=== PATIENT | female | born 1955 | race Caucasian/White ===

== ENCOUNTER 2023-11-17 16:03 | Emergency (ER) | payer MEDICAID, SELFPAY ==
[2023-11-17 16:04] VITALS: BP 150/85; PULSE 73; RESP 18; TEMP 36.6; O2SAT 94; BMI 36.5
--- NOTE | 2023-11-17 17:17 | EDS_ITS ---
HPI History of Present Illness Chief Complaint: Ear Problem Narrative Narrative: 68-year-old female past medical history of psoriasis, hard of hearing, presents with pain and swelling of her right ear that she has had since yesterday. She states the day before everything was fine. She denies any fevers or chills but states that she has pain and swelling of her right ear that she noticed yesterday. Although she wears hearing aids usually, she has not used it for quite some time because she lost it. She does have psoriasis, and has patches behind both her ears but it is her right ear that is painful and swollen. She states she cannot hear out of that ear very well at baseline. She recently moved to the area so does not have a primary care provider. PFSH [facility] Home Medications ?Medication ?Instructions ?Recorded ?Last Taken ?Type amoxicillin 875 mg-potassium 1 tab PO BID #20 tabs 11/17/23 Unknown Rx clavulanate 125 mg tablet Allergy/AdvReac Type Severity Reaction Status Date / Time No Known Allergies Allergy Verified 11/17/23 16:04 ROS ROS ED ROS Narrative Constitutional: No fever, no chills. HEENT: No sore throat. No neck pain. No loss of vision. No rhinorrhea. Positive right ear pain and swelling. Positive redness. Feels warm to touch. Cardiovascular: No chest pain. No palpitations. No pedal edema. Respiratory: No cough, no shortness of breath. Abdominal: No abdominal pain. No nausea. No vomiting. Genitourinary: No dysuria. No hematuria. Musculoskeletal: No myalgias. No arthralgias. Neurologic: Occasional headaches. No dizziness. No lightheadedness. Skin: No rash. No change in color. Psychiatric: No depression. No anxiety. EXAM Physical Exam Narrative Exam Narrative: Afebrile. Vital signs noted. Nontoxic-appearing. Cardiovascular examination feels a regular rate and rhythm. Lungs are clear to auscultation bilaterally. Abdomen is soft nontender with normal active bowel sounds. Inspection of her right ear and auricle does reveal psoriatic patch and dry skin near the top of the auricle and behind her ear. There is no mastoid tenderness to percussion but there is a psoriatic patch. Inspection of the TM shows dullness with fluid but no erythema, no swelling of the canal. There is pain with movement of the auricle and noted swelling consistent with cellulitis. Const Vital Signs: 11/17/23 16:04 Temperature 98 F Temperature Source Temporal Pulse Rate 73 Respiratory Rate 18 Blood Pressure 150/85 H Blood Pressure Mean 106 Pulse Ox 94 Oxygen Delivery Method Room Air MDM MDM MDM Narrative Medical decision making narrative: Differential diagnosis includes but not limited to cellulitis of the right auricle versus mastoiditis versus otitis media versus otitis externa. I do feel that her psoriasis is causing her cellulitis of the auricle. I do not feel that she requires any laboratory work or CT imaging currently. She was referred to a primary care provider and ENT and started on Augmentin here for the next 10 days. She will take [id number] analgesics. I feel she can be discharged to follow-up. I do not feel steroids are indicated for her psoriasis as I feel it may make her infection worse. Return instructions to the emergency department were reviewed. Disposition is discharged home in stable condition. History & Record Review Discussion w/independent historian: Patient Discharge Plan Triage Chief Complaint: Ear Problem ED Provider: Mike Garcia Dx/Rx/DC Orders Clinical Impression: Cellulitis of auricle of right ear, Psoriasis Prescriptions: New amoxicillin-pot clavulanate 875-125 mg tablet 1 tab PO BID Qty: 20 0RF Referrals: Adrien Robles MD [Med Staff - Active Staff] - As soon as possible Raul Macdonald MD [Med Staff - Active Staff] - 1 Week if not improving Activity Restrictions/Additional Instructions: Return with fever, increased pain, increased swelling and redness of right ear, new or worsening symptoms. Print Language: [place] Leonean Disposition Disposition: Home, Self Care
[2023-11-17] MEDS: Amox/Clavulanate 875 MG Tablet PO (17:34)
[2023-11-17 17:36] VITALS: BP 142/70; PULSE 70; RESP 16; TEMP 36.2; O2SAT 96
== END 2023-11-17 17:39 | disposition home or self-care (01) ==
LOC: ED 17:22
PROVIDERS: Emergency Provider Emergency Medicine; Visit Provider Emergency Medicine
DX: L40.9 Psoriasis, unspecified (principal); H60.11 Cellulitis of right external ear
CPT/HCPCS: 99282

== ENCOUNTER 2024-02-01 01:45 | Emergency (ER) | payer MEDICAID, SELFPAY ==
[2024-02-01 01:48] VITALS: BP 148/68; PULSE 65; RESP 15; TEMP 36.9; O2SAT 94; BMI 35.2
--- NOTE | 2024-02-01 02:09 | CT_ITS ---
INDICATION: head injury EXAMINATION: CT BRAIN - CT Head or Brain W/O Contrast Injection TECHNIQUE: Serial CT axial images were obtained of the head without intravenous contrast. A radiation dose optimization technique was used for this scan. COMPARISON: None. Findings: Serial CT axial images of the head without contrast. BRAIN PARENCHYMA: Diffuse periventricular hypoattenuation likely chronic white matter ischemic changes. No significant volume loss. No evidence of intraparenchymal hemorrhage or hyperattenuating extra-axial fluid collection. VASCULAR STRUCTURES: Atherosclerotic vascular calcifications. OSSEOUS STRUCTURES: There is subtle displaced left orbital floor fracture, extending only approximately 2 mm into the left maxillary sinus. Associated left maxillary sinus air-fluid level. ORBITS: There is asymmetric posterior hyperattenuating thickening of the left globe. REMAINING SOFT TISSUES: Left periorbital hematoma. ASPECTS Score for Acute Strokes, if applicable: 10 CT/Brain/Head without Contrast IMPRESSION: No acute intracranial hemorrhage in this noncontrast head CT. Left proptosis. Left orbital floor fracture. Asymmetric hyperattenuating thickening of the posterior left globe, without comparison although suspicious for possible retinal detachment/hemorrhage. Electronically Signed: Kyle Whaley MD at 4:21 EST ,
--- NOTE | 2024-02-01 02:09 | RAD_ITS ---
INDICATION: pain EXAMINATION/TECHNIQUE: X-RAY - RIGHT XR Tibia/Fibula 2 Views COMPARISON: None. FINDINGS: 2 views of the right tib-fib. BONES: Normal anatomic alignment without evidence of fracture or subluxation. No concerning bony lesion or abnormal sclerosis to suggest lesion. JOINTS: No significant degenerative change. SOFT TISSUES: Unremarkable. RAD/Tibia & Fibula 2 Views IMPRESSION: No acute osseous abnormality of the right tib-fib Electronically Signed: Kyle Whaley MD at 4:28 EST ,
--- NOTE | 2024-02-01 02:09 | RAD_ITS ---
INDICATION: pain EXAMINATION/TECHNIQUE: X-RAY - RIGHT XR Ankle Min 3 Views COMPARISON: None. FINDINGS: 3 views of the right ankle. BONES: Small chronic appearing triangular ossicle off the medial malleolus. Normal anatomic alignment without acute fracture or subluxation. No concerning bony lesion or abnormal sclerosis to suggest lesion. JOINTS: No significant degenerative change. SOFT TISSUES: Unremarkable. RAD/Ankle min 3 Views IMPRESSION: No acute osseous abnormality of the right ankle. Electronically Signed: Kyle Whaley MD at 4:33 EST ,
--- NOTE | 2024-02-01 02:09 | CT_ITS ---
INDICATION: head injury EXAMINATION: CT SPINE - CT Spine Cervical W/O Contrast Injection COMPARISON: None. A radiation dose optimization technique was used for this scan. RADIATION DOSAGE (If Supplied By Facility): CTDIvol/DLP = ( 26.32 ) / ( 537.37 ) mGy/mGycm Findings: Serial CT axial images through the cervical spine, with coronal and sagittal reformatted series. BONES: No evidence of cervical spine fracture or subluxation. No concerning bony lesion or abnormal sclerosis to suggest lesion. DISCS/JOINTS: Moderate to severe multilevel bilateral mid cervical neuroforaminal narrowing. Severe and moderate central bony spinal canal stenosis at these levels as well. SOFT TISSUES: Soft tissue structures are unremarkable. CT/Spine Cervical without Contras IMPRESSION: Cervical spine without evidence of acute fracture. Severe central bony spinal canal stenosis and neuroforaminal narrowing as above. Electronically Signed: Kyle Whaley MD at 4:26 EST ,
--- NOTE | 2024-02-01 02:09 | CT_ITS ---
INDICATION: head injury EXAMINATION/TECHNIQUE: X-RAY - CT Maxillofacial W/O Contrast Injection A radiation dose optimization technique was used for this scan. COMPARISON: Head CT same day. Findings: Noncontrast serial CT axial images of the facial bones with coronal and sagittal reformatted series. OSSEOUS STRUCTURES: There is subtle displaced left orbital floor fracture, extending only approximately 2 mm into the left maxillary sinus. Associated left maxillary sinus air-fluid level. No TMJ subluxation. Partially imaged moderate to severe bilateral upper mid cervical neuroforaminal narrowing, better described on cervical spine CT same day. ORBITS: There is asymmetric posterior hyperattenuating thickening of the left globe. REMAINING SOFT TISSUES: Left periorbital hematoma. CT/Sinus/Facial Bone IMPRESSION: Left proptosis. Left orbital floor fracture. Asymmetric hyperattenuating thickening of the posterior left globe, without comparison although suspicious for possible retinal detachment/hemorrhage. Electronically Signed: Kyle Whaley MD at 4:16 EST ,
[2024-02-01] MEDS: Ondansetron 4 MG/2 ML Vial IV (02:17)
[2024-02-01] MEDS: Morphine 4 MG/ML Syringe IV (02:17)
[2024-02-01 02:27] LABS: Absolute Lymphocyte Count 3.43 X10^3/uL (0.83-4.51); Absolute Neutrophil Count 5.3 X10^3/uL (2.0-7.7); Basophil# 0.07 X10^3/uL; Basophil% 0.7 % (0-1); Eosinophil# 0.36 X10^3/uL; Eosinophils% 3.5 % (0-5); Hemoglobin 15.1 g/dL (12.0-15.0); Lymphocyte # 3.43 X10^3/ul (0.83-4.51); Lymphocyte % 33.6 % (19-41); Mean Corp Hgb Conc 34.3 g/dL (32-36); Mean Corpuscular Volume 99.1 fL (81-99); Mean Platelet Vol. 9.9 fl (6.2-12.0); Monocyte# 1.06 X10^3/uL; Monocyte% 10.4 % (0-10); NRBC Flagged by Analyzer 0 % (0-5); Neutrophil # 5.25 X10^3/uL (2.7-7.7); Neutrophil % 51.5 % (47-70); Platelet Count 185 K/mm3 (150-450); RBC Distribution Width CV 12.8 % (11.6-14.6); RBC Distribution Width SD 47.2 fl (35.1-43.9); Red Blood Count 4.44 M/mm3 (4.2-5.4); White Blood Count 10.2 K/mm3 (4.4-11.0)
--- NOTE | 2024-02-01 02:41 | RAD_ITS ---
STUDY: X-RAY - PELVIS REASON FOR EXAM: Female, 68 years old. Fall TECHNIQUE: One view of the pelvis was obtained. COMPARISON: None. FINDINGS: There is a non-specific bowel gas pattern. There are multiple calcified phleboliths. 2 metallic clips are seen overlying the right sacroiliac joint. Findings suggestive of degenerative change of the right sacroiliac joint. Normal visualized bilateral superior and inferior pubic rami. There is narrowing with sclerosis of the pubic symphysis. Normal ischial tuberosities. Normal visualized right femoral head. There is osteoarthritic spur formation of the right acetabular rim. Normal right hip joint. Normal visualized left femoral head. There is osteoarthritic spur formation of the left acetabular rim. Normal left hip joint. RAD/Pelvis 1 or 2 Views IMPRESSION: No acute fracture is seen. Electronically Signed: Pavan Gann MD at 14:54 EST ,
[2024-02-01 02:42] LABS: Anion Gap 4 (5-15); BUN 12 mg/dL (7-18); BUN/Creat Ratio 14.6 RATIO (10-20); Calcium,Total 9.1 mg/dL (8.5-10.1); Chloride 109 mmol/L (98-107); Creatinine, Serum 0.82 mg/dL (0.55-1.02); EST Glomerular Filtration Rate 74 mL/min (>60); Est Glom Filt Rate - Afr Amer 89 mL/min (>60); Estimated Creatinine Clearance 75.26 ml/min; Glucose 136 mg/dL (74-106); Potassium 3.9 mmol/L (3.5-5.1); Sodium Level 140 mmol/L (136-145)
[2024-02-01 02:55] LABS: International Normalized Ratio 1.1; Prothrombin Time (Protime)PT. 13.7 SECONDS (11.7-14.9)
[2024-02-01 02:56] LABS: Partial Thromboplast Time 30.6 Seconds (24.1-36.2)
[2024-02-01] MEDS: HYDROmorphone 1 MG/ML Syringe IV (03:21)
[2024-02-01 03:32] VITALS: O2SAT 67
[2024-02-01 03:35] VITALS: O2SAT 93
[2024-02-01 05:00] VITALS: BP 133/69
[2024-02-01] MEDS: Lidocaine/Epi/Tetracaine 50 ML 1 APPLIC TOPICAL (05:22)
--- NOTE | 2024-02-01 05:56 | EX.ED.DYSGE1 ---
HPI History of Present Illness Chief Complaint: Fall Informant: patient, family and EMS Narrative Narrative: Patient is a 68-year-old female with past medical history of hypertension and tobacco abuse. She states she lives with her daughter in her room and is downstairs. She states shortly prior to arrival she was walking down to her room when she lost her balance and fell. She states that she struck her head but denies any loss of consciousness and injured her right lower leg. Daughter states that she awoke hearing the patient scream in pain. She states when she found her she was awake and alert but with signs of trauma and could not stand secondary to her pain. With concern for underlying injury EMS was called and she was brought in for evaluation. Patient denies any history of bleeding disorder or blood thinner use [facility] Medical History (Updated 02/03/24 @ 05:[address] Patricio Fountain DO) Psoriasis Tobacco use Obesity HTN (hypertension) Anxiety and depression Cleft palate Home Medications ?Medication ?Instructions ?Recorded ?Last Taken ?Type clonidine HCl 0.2 mg tablet 0.2 mg PO QHS 02/01/24 Unknown History gabapentin 400 mg capsule 400 mg PO Q8H 02/01/24 Unknown History hydroxyzine pamoate 50 mg capsule 50 mg PO TID 02/01/24 Unknown History methocarbamol 500 mg tablet 500 mg PO TID PRN Muscle 02/01/24 Unknown Rx pain/spasm #30 tabs mirtazapine 15 mg tablet 15 mg PO QHS 02/01/24 Unknown History ondansetron 4 mg disintegrating 4 mg PO TID PRN nausea and 02/01/24 Unknown Rx tablet vomiting #21 tabs oxycodone 5 mg tablet 5 mg PO Q6H PRN pain 5 days #20 02/01/24 Unknown Rx tabs Allergy/AdvReac Type Severity Reaction Status Date / Time NSAIDS (Non-Steroidal Allergy Unknown PT UNSURE Verified 02/01/24 01:48 Anti-Inflamma OF REACTION aspirin AdvReac Mild Abd Verified 02/01/24 01:48 cramps/diarrhea Surgical History (Updated 02/01/24 @ 01:53 by Sherin Michaels) History of ankle surgery Status post left foot surgery H/O hysterectomy with oophorectomy H/O wrist surgery Social History (Updated 02/01/24 @ 02:[address] Nuris Regan MD) household members: none Smoking Status: Current every day smoker tobacco type: cigarettes substance use type: does not use ROS ROS ED Constitutional Constitutional ED: Denies chills or fever(s) Eyes Eyes: Reports blurry vision left ENT ENT ED: Denies sore throat Cardiovascular Cardiovascular: Reports other Details: Negative syncope ; Denies chest pain Respiratory/Chest Respiratory/Chest: Denies cough or dyspnea Gastrointestinal Gastrointestinal: Denies abdominal pain, diarrhea, nausea or vomiting Genitourinary Genitourinary ED: Denies dysuria Musculoskeletal Musculoskeletal: Reports other Details: Positive right lower leg pain ; Denies back pain or neck pain Integumentary Reports Abrasions Neurologic Neurologic: Reports headache(s); Denies paresthesias or weakness Hematologic/Lymphatic Hematologic/Lymphatic: Denies easy bleeding or easy bruising EXAM Physical Exam Const Vital Signs: 02/01/24 01:48 02/01/24 01:54 02/01/24 03:32 Temperature 98.5 F Temperature Source Oral Pulse Rate 65 Respiratory Rate 15 Respiratory Effort Normal Non-Labored Respiratory Depth Normal Respiratory Pattern Normal Blood Pressure 148/68 H Blood Pressure Mean 94 Pulse Ox 94 67 Oxygen Delivery Method Room Air Room Air Room Air Oxygen Flow Rate (L/min) 02/01/24 03:35 02/01/24 05:00 Temperature Temperature Source Pulse Rate Respiratory Rate Respiratory Effort Respiratory Depth Respiratory Pattern Blood Pressure 133/69 H Blood Pressure Mean 90 Pulse Ox 93 Oxygen Delivery Method Nasal Cannula Oxygen Flow Rate (L/min) 3 Positive well nourished, well developed and obese General Appearance ED: well developed Nutritional Appearance: obese HEENT HEENT Narrative: Patient has soft tissue swelling and ecchymosis around the left orbit There is also edema and ecchymosis across the bridge of the nose Patient has a dermal layer skin tear above the left eyebrow with minimal ooze of blood Otherwise no signs of depressed or basilar skull fracture No septal hematoma Eyes PERRL and EOMs intact bilaterally Eyes Narrative: Patient has a large subconjunctival hemorrhage on the left; no hyphema is noted Patient reports blurry vision out of the left eye secondary to surrounding soft tissue swelling but denies any true change or loss of vision Neck Neck Narrative: C-collar in place there is no bony deformity or step-off of the cervical spine Chest Wall palpation of chest normal Chest Narrative: No bony deformity or crepitance noted Resp normal respiratory effort Resp Narrative: Breath sounds are diminished throughout with diffuse expiratory wheeze and rhonchi in the bilateral bases consistent with history of tobacco use Cardio regular rate and regular rhythm GI normal to inspection, nondistended, normoactive bowel sounds, non-tender, non-distended and no masses GI Narrative: No voluntary guarding or rigidity or pulsatile mass No ecchymosis noted across the abdomen Auscultation: normoactive bowel sounds Palpation: soft Back/Spine Back/Spine Narrative: No bony deformity or step-off of the thoracic or lumbar spine no midline tenderness to palpation Extremity Extremity Narrative: Pelvis is stable there is no shortening or external rotation of either lower extremity Right lower extremity is neurovascularly intact. There is however soft tissue swelling ecchymosis to the anterior aspect of the distal right tibia. No obvious long bone deformity Neuro oriented x3, CN's II-XII intact bilaterally and no sensory deficits noted Sensorium / Orientation: alert Psych mental status grossly normal Skin Skin Narrative: Ecchymosis to the right lower leg as well as the ecchymosis and skin tear along the left orbit as documented above MDM MDM MDM Narrative Medical decision making narrative: Patient arrived to the ER hypertensive but has a past medical history of this. She reported mechanical fall so therefore there is no need for cardiac or syncope workup. However she did strike her head/face and there is concern for orbital floor fracture versus nasal fracture versus traumatic skull fracture versus subarachnoid or subdural hemorrhage. With injury to the right lower leg there is also concern for potential tibia/fibular fracture or ankle fracture. With concern for underlying brain bleed I did like to perform basic laboratory studies. Labs revealed no clinically significant finding. CTs of the head neck and face revealed a mild/minimal left orbital floor fracture without herniation. The radiologist did document changes concerning for potential retinal hemorrhage or detachment. The patient is not having vision changes to suggest this. I did discuss the case with ophthalmology on-call and he states that as the patient is not having acute vision changes and my exam does not show any obvious hyphema there is no need for emergent ophthalmology consultation and patient can be seen outpatient in the next 1 to 2 days. The patient and family were informed of these findings and need to follow-up as an outpatient which they state they understand. The patient was ambulated in the ER and was able to walk with a steady gait using a walker which she does at home as well. Therefore his workup today shows no acute long bone fracture no skull fracture or brain bleed and patient is able to ambulate there is no need for admission and she is otherwise safe for discharge History & Record Review Discussion w/independent historian: Patient and Family Lab Data Attestation: I reviewed the patient's lab results. Labs: Laboratory Results - last 24 hr 02/01/24 02:11 WBC 10.2 RBC 4.44 Hgb 15.1 H Hct 44.0 MCV 99.1 H MCH 34.0 H MCHC 34.3 RDW Std Deviation 47.2 H RDW Coeff of [place] 12.8 Plt Count 185 MPV 9.9 Immature Gran % (Auto) 0.300 Neut % (Auto) 51.5 Lymph % (Auto) 33.6 [place] % (Auto) 10.4 H Eos % (Auto) 3.5 Baso % (Auto) 0.7 Absolute Neuts (auto) 5.3 Absolute Lymphs (auto) 3.43 Nucleated RBC % 0 PT 13.7 INR 1.1 APTT 30.6 Sodium 140 Potassium 3.9 Chloride 109 H Carbon Dioxide 27.0 Anion Gap 4 L BUN 12 Creatinine 0.82 Estim Creat Clear Calc 75.26 Est GFR (MDRD) Af Amer 89 Est GFR (MDRD) Non-Af 74 BUN/Creatinine Ratio 14.6 Glucose 136 H Calcium 9.1 Radiography Diagnostic Testing: Clinical Impression(s) from Imaging Studies Ankle X-Ray 02/01/24 02:09 IMPRESSION: No acute osseous abnormality of the right ankle. Electronically Signed: Kyle Whaley MD at 4:33 EST , Brain CT 02/01/24 02:09 IMPRESSION: No acute intracranial hemorrhage in this noncontrast head CT. Left proptosis. Left orbital floor fracture. Asymmetric hyperattenuating thickening of the posterior left globe, without comparison although suspicious for possible retinal detachment/hemorrhage. Electronically Signed: Kyle Whaley MD at 4:21 EST , Cervical Spine CT 02/01/24 02:09 IMPRESSION: Cervical spine without evidence of acute fracture. Severe central bony spinal canal stenosis and neuroforaminal narrowing as above. Electronically Signed: Kyle Whaley MD at 4:26 EST , Facial/Sinus 02/01/24 02:09 IMPRESSION: Left proptosis. Left orbital floor fracture. Asymmetric hyperattenuating thickening of the posterior left globe, without comparison although suspicious for possible retinal detachment/hemorrhage. Electronically Signed: Kyle Whaley MD at 4:16 EST , Tibia/Fibula X-Ray 02/01/24 02:09 IMPRESSION: No acute osseous abnormality of the right tib-fib Electronically Signed: Kyle Whaley MD at 4:28 EST , Pelvis X-Ray 02/01/24 02:41 IMPRESSION: No acute fracture is seen. Electronically Signed: Pavan Gann MD at 14:54 EST , 1 view pelvis x-ray as interpreted by the emergency medicine physician reveals no acute fracture or dislocation Right tibia/fibula x-ray as interpreted by the emergency medicine physician reveals no acute fracture or dislocation Right ankle x-ray as interpreted by the emergency medicine physician reveals no acute fracture dislocation or joint effusion Discharge Plan Triage Chief Complaint: Fall ED Provider: Patricio Fountain Dx/Rx/DC Orders Clinical Impression: Fracture of orbital floor, Subconjunctival hemorrhage, Traumatic hematoma of face, Contusion of right tibia, Hypertension Instructions: Bone Contusion, ED Facial Fracture, ED Subconjunctival Hemorrhage Prescriptions: New oxycodone 5 mg tablet 5 mg PO Q6H PRN (Reason: pain) 5 Days Qty: 20 0RF ondansetron 4 mg tablet,disintegrating 4 mg PO TID PRN (Reason: nausea and vomiting) Qty: 21 0RF methocarbamol 500 mg tablet 500 mg PO TID PRN (Reason: Muscle pain/spasm) Qty: 30 0RF No Action gabapentin 400 mg capsule 400 mg PO Q8H hydroxyzine pamoate 50 mg capsule 50 mg PO TID mirtazapine 15 mg tablet 15 mg PO QHS clonidine HCl 0.2 mg tablet 0.2 mg PO QHS Primary Care Provider: DENYS KINNEY Referrals: DENYS KINNEY [Other] Hunter Carlson MD [Med Staff - Active Staff] - Activity Restrictions/Additional Instructions: Please follow-up with ophthalmology for further evaluation of the trauma to your left eye. Continue your home medications as directed by your doctor but add the medications prescribed from the ER for improved pain control. Return to the ER should you have any further concerns Print Language: Z[place]ian Disposition Disposition: Home, Self Care Discharge Date/Time: 02/01/24 06:18
[2024-02-01 06:16] VITALS: BP 133/69; PULSE 60; RESP 18; TEMP 36.8; O2SAT 92
== END 2024-02-01 06:18 | disposition home or self-care (01) ==
PROVIDERS: Emergency Provider Emergency Medicine; Visit Provider Emergency Medicine
DX: S02.32XA Fracture of orbital floor, left side, initial encounter for closed fracture (principal); W19.XXXA Unspecified fall, initial encounter; Z90.710 Acquired absence of both cervix and uterus; F17.210 Nicotine dependence, cigarettes, uncomplicated; I10 Essential (primary) hypertension; H11.30 Conjunctival hemorrhage, unspecified eye; S80.11XA Contusion of right lower leg, initial encounter; E66.9 Obesity, unspecified
CPT/HCPCS: 70450; 70486; 72125; 72170; 73590; 73610; 80048; 85025; 85610; 85730; 96374; 96375; 99285; A4216; J2405

== ENCOUNTER 2024-03-03 15:40 | Emergency (ER) | payer MEDICAID, SELFPAY ==
[2024-03-03 15:40] VITALS: BP 148/86; PULSE 82; RESP 16; TEMP 36.2; O2SAT 95; BMI 34.6
--- NOTE | 2024-03-03 15:58 | RAD_ITS ---
STUDY: X-RAY - RIGHT TIBIA AND FIBULA REASON FOR EXAM: Female, 68 years old. fall TECHNIQUE: 2 view(s) of the tibia and fibula were obtained. COMPARISON: February 01, 2024 FINDINGS: Normal visualized tibia. Normal visualized fibula. Surgical changes involving the calcaneus Mild soft tissue swelling overlying the medial malleolus. RAD/Tibia & Fibula 2 Views IMPRESSION: No evidence for acute fracture or other significant bony pathology unchanged since previous study Electronically Signed: Arturo Sweet MD at 16:33 EST ,
--- NOTE | 2024-03-03 15:58 | EDS_ITS ---
HPI History of Present Illness HPI Narrative: 60-year-old female fell January 31 was seen in the emergency department. At that time in the left orbit fracture. She had x-rays of her right tib-fib, ankle and foot that did not show any fracture. She is having continued pain. She also had a CT of her brain and C-spine that were unremarkable. Chief Complaint: Lower Extremity Injury Informant: patient Occured/Mechanism Mechanism/Context: Yes injury and Yes blunt trauma Onset/Context/Timing Context: Sudden Onset Timing: Continuous Quality of Pain: Dull and Aching Current Severity: Moderate Maximum Severity: Moderate Associated Symptoms Associated Symptoms: Negative for Parasthesia, Weakness or Loss of Funtion Narrative Narrative: 68-year-old female fell 1 month ago. At that time had x-rays done of her right tib-fib ankle and foot which were negative. No fracture. She the left orbit fracture. Negative CT of her brain and neck. She is complaining of continued pain in her right lower leg ankle and foot. This was Prior similar symptoms: Yes Recent Illness/Hospitalization: No PFSH PFSH Medical History Psoriasis Tobacco use Obesity HTN (hypertension) Anxiety and depression Cleft palate Home Medications ?Medication ?Instructions ?Recorded ?Last Taken ?Type clonidine HCl 0.2 mg tablet 0.2 mg PO QHS 02/01/24 Unknown History gabapentin 400 mg capsule 400 mg PO Q8H 02/01/24 Unknown History hydroxyzine pamoate 50 mg capsule 50 mg PO TID 02/01/24 Unknown History methocarbamol 500 mg tablet 500 mg PO TID PRN Muscle 02/01/24 Unknown Rx pain/spasm #30 tabs mirtazapine 15 mg tablet 15 mg PO QHS 02/01/24 Unknown History ondansetron 4 mg disintegrating 4 mg PO TID PRN nausea and 02/01/24 Unknown Rx tablet vomiting #21 tabs oxycodone 5 mg tablet 5 mg PO Q6H PRN pain 5 days #20 02/01/24 Unknown Rx tabs Allergy/AdvReac Type Severity Reaction Status Date / Time NSAIDS (Non-Steroidal Allergy Unknown PT UNSURE Verified 03/03/24 15:43 Anti-Inflamma OF REACTION aspirin AdvReac Mild Abd Verified 03/03/24 15:43 cramps/diarrhea Surgical History History of ankle surgery Status post left foot surgery H/O hysterectomy with oophorectomy H/O wrist surgery Social History household members: none Smoking Status: Current every day smoker tobacco type: cigarettes substance use type: does not use ROS ROS ED ROS Narrative Denies recent illness. Constitutional Constitutional ED: Denies chills or fever(s) Eyes Eyes: Denies blurry vision ENT ENT ED: Denies ear pain Cardiovascular Cardiovascular: Denies chest pain Respiratory/Chest Respiratory/Chest: Denies cough or dyspnea Gastrointestinal Gastrointestinal: Denies abdominal pain Genitourinary Genitourinary ED: Denies dysuria or hematuria Musculoskeletal Musculoskeletal: Denies arthralgias Integumentary Denies abscess Neurologic Neurologic: Denies headache(s) or paresthesias Psychiatric Psychiatric: Denies anxiety Endocrine Endocrinology: Denies polydipsia Hematologic/Lymphatic Hematologic/Lymphatic: Denies easy bleeding Allergic/Immunologic Allergic/Immunologic ED: Denies mouth swelling EXAM Physical Exam Narrative Exam Narrative: 68-year-old female sitting upright in bed. Vital signs are stable afebrile. No acute distress. H EENT exam given round reactive to light. Extra motions are intact. No entrapment. No facial bruising or swelling. Neck nontender. Back nontender. Lungs clear to auscultation. Heart regular rhythm rate about 80 no murmur. Chest wall ribs nontender. Abdomen soft nontender. Pelvic girdle int act. Moving all 4 extremities. Neurovascular intact. Normal analytics architect strength. Normal dorsi plantarflexion. She does have tenderness on her right lower tib- fib region. Right ankle and top of her right foot. No deformity. Able to wiggle her toes. Normal DP pulse. Skin intact. Neurologically she is awake alert answering questions following commands. Const Vital Signs: 03/03/24 15:40 Temperature 97.1 F L Temperature Source Temporal Pulse Rate 82 Respiratory Rate 16 Blood Pressure 148/86 H Blood Pressure Mean 106 Pulse Ox 95 Oxygen Delivery Method Room Air Positive well nourished and well developed; Negative for cachectic, contractures or unkempt General Appearance ED: well developed and NAD; Negative for unkempt, cachectic or contractures Nutritional Appearance: Negative for cachectic HEENT Reports moist mucous membranes normocephalic and atraumatic; Negative for trauma or tenderness Eyes PERRL Neck full ROM and supple Thyroid: Negative for tender Lymph Lymphatic: Negative for other Chest Wall inspection of chest normal and palpation of chest normal Resp normal respiratory effort, no retractions and clear to auscultation bilaterally Auscultation: Negative for rales, rhonchi, wheezes or diminished lung sounds Cardio regular rate, regular rhythm, S1 normal heart sound, S2 normal heart sound and no murmurs Rate: Negative for bradycardia or tachycardic Rhythm: Negative for abnormal rhythm Bruits: Negative for other GI non-tender, non-distended and no masses Inspection: Negative for abdominal distention Auscultation: normoactive bowel sounds Palpation: soft; Negative for tender or guarding Back/Spine no CVA tenderness General Back: Negative for CVA tenderness or swelling Cervical Spine: Negative for cervical spine tenderness Thoracic Spine / Upper Back: Negative for thoracic spinal tenderness Lumbar Spine / Lower Back: Negative for lumbar spinal tenderness Extremity full ROM; Negative for normal to inspection Extremity Narrative: Tenderness right lower tib-fib, ankle and top of her foot. No deformity. Neurovascular intact. General Extremety ED: Negative for cyanosis or edema General Extremity: Negative for cyanosis or edema Neuro oriented x3, CN's II-XII intact bilaterally and moves all extremities Sensorium / Orientation: alert, oriented to person, oriented to place and orien sharif to time Motor Exam: strength 5/5 throughout Psych mental status grossly normal Appearance: Negative for unkempt Mood & Affect: Negative for anxious Skin no wounds Lesions: no lesions Rashes: no rashes MDM MDM MDM Narrative Medical decision making narrative: 68-year-old female fell a month ago having chronic pain since the fall of her right lower leg ankle and foot. X-rays were negative at that time. She will be libra-rayed today. Repeat exam patient doing well at 4:38 PM. X-rays were read as negative by my self and the radiologist. Discussed that with the patient. Outpatient follow- up as needed. Tylenol and/or limited Motrin for pain. History & Record Review Discussion w/independent historian: Patient Additional record(s) reviewed:: Prior inpatient record, Prior outpatient record and Prior ED visit Radiography Diagnostic Testing: Clinical Impression(s) from Imaging Studies Ankle X-Ray 03/03/24 15:58 IMPRESSION: Soft tissue swelling overlying the medial malleolus without evidence for acute fracture or dislocation Electronically Signed: Arturo Sweet MD at 16:35 EST , Tibia/Fibula X-Ray 03/03/24 15:58 IMPRESSION: No evidence for acute fracture or other significant bony pathology unchanged since previous study Electronically Signed: Arturo Sweet MD at 16:33 EST , Right ankle x-ray, 3 views, interpreted by myself and the radiologist shows no acute fracture. Right tib-fib x-ray 2 views interpreted by myself and radiologist again no acute fracture. Right foot x-ray, 3 views, interpreted by myself and awaiting the radiologist read. Shows no acute fracture or dislocation. Chronic changes consistent with arthritis. Discharge Plan Triage Chief Complaint: Lower Extremity Injury ED Provider: Joselito Tomlinson Dx/Rx/DC Orders Clinical Impression: Ankle sprain, Foot sprain, History of fall Instructions: ED Foot Sprain, ED Ankle Sprain (Adult) Prescriptions: No Action gabapentin 400 mg capsule 400 mg PO Q8H hydroxyzine pamoate 50 mg capsule 50 mg PO TID mirtazapine 15 mg tablet 15 mg PO QHS clonidine HCl 0.2 mg tablet 0.2 mg PO QHS oxycodone 5 mg tablet 5 mg PO Q6H PRN (Reason: pain) 5 Days Qty: 20 0RF ondansetron 4 mg tablet,disintegrating 4 mg PO TID PRN (Reason: nausea and vomiting) Qty: 21 0RF methocarbamol 500 mg tablet 500 mg PO TID PRN (Reason: Muscle pain/spasm) Qty: 30 0RF Primary Care Provider: DENYS KINNEY Referrals: DENYS KINNEY [Other] Hunter Carlson MD [Med Staff - Active Staff] - As soon as possible Activity Restrictions/Additional Instructions: Ice and elevate your right foot, ankle and lower leg. Alternate Tylenol and limited Motrin for pain. This should progressively improve if not follow-up for further evaluation. The x-rays today of your right leg, ankle and foot again showed no broken bones. Print Language: Arabic Disposition Disposition: Home, Self Care
--- NOTE | 2024-03-03 15:58 | RAD_ITS ---
STUDY: X-RAY - RIGHT ANKLE REASON FOR EXAM: Female, 68 years old. fall TECHNIQUE: 3 view(s) of the ankle. COMPARISON: None. FINDINGS: Normal visualized distal tibia and fibula. Normal medial and lateral malleoli. Normal tibiotalar articulation and ankle mortise. Normal visualized talus. Postsurgical changes of the calcaneus. The visualized subtalar, talonavicular, calcaneocuboid and tarsal articulations are normal. Mild soft tissue swelling overlying the medial malleolus. No significant change since prior study RAD/Ankle min 3 Views IMPRESSION: Soft tissue swelling overlying the medial malleolus without evidence for acute fracture or dislocation Electronically Signed: Arturo Sweet MD at 16:35 EST ,
--- NOTE | 2024-03-03 15:58 | RAD_ITS ---
STUDY: X-RAY - RIGHT FOOT CLINICAL: Female, 68 years old. fall TECHNIQUE: 3 view(s) of the foot. COMPARISON: None. FINDINGS: Normal talus,, and tarsal bones. Postsurgical changes of the calcaneus Normal visualized subtalar, talonavicular, calcaneocuboid, tarsal and tarsometatarsal articulations. Normal metatarsi. Mild degenerative changes of the metatarsophalangeal joint of the great toe. Normal tibial and fibular sesamoid bones. Normal interphalangeal joint of the great toe. Normal phalanges of the great toe. Normal second through fifth metatarsophalangeal joints. Normal interphalangeal joints and phalanges of the lesser toes. The soft tissue structures are unremarkable. RAD/Foot min 3 Views IMPRESSION: No acute fracture or other significant bony pathology. Electronically Signed: Arturo Sweet MD at 16:55 EST Reading Location ID and State: [facility] / [place] Tel , Service support ,
== END 2024-03-03 17:02 | disposition home or self-care (01) ==
PROVIDERS: Emergency Provider Emergency Medicine; Visit Provider Emergency Medicine
DX: S93.401D Sprain of unspecified ligament of right ankle, subsequent encounter (principal); Z91.81 History of falling; G89.29 Other chronic pain; I10 Essential (primary) hypertension; F17.210 Nicotine dependence, cigarettes, uncomplicated; Z90.710 Acquired absence of both cervix and uterus; W19.XXXD Unspecified fall, subsequent encounter; F41.9 Anxiety disorder, unspecified; F32.A Depression, unspecified
CPT/HCPCS: 73590; 73610; 73630; 99282

== ENCOUNTER 2024-04-07 16:32 | Inpatient (IN) | payer MEDICAID, SELFPAY ==
[2024-04-07] VITALS (12 sets, daily range): BP systolic 111–156; BP diastolic 68–87; PULSE 79–92; RESP 20–33; TEMP 37.2–37.7; O2SAT 92–95; BMI 33.7; BMI 33.0
--- NOTE | 2024-04-07 16:57 | EKG12_ITS ---
Test Reason : SOB Blood Pressure : */* mmHG Vent. Rate : 84 BPM Atrial Rate : * BPM P-R Int : * ms QRS Dur : 70 ms QT Int : 360 ms P-R-T Axes : * -11 33 degrees QTcB Int : 425 ms Accelerated Junctional rhythm Nonspecific T wave abnormality Abnormal ECG Confirmed by KEN CALDERON, BERONICA ([id number]), film editor ANGELO SCOTT ([id number]) on 04/12/2024 7:15:09 AM Referred By: ELAYNE/JOSTIN Confirmed By: BERONICA ROGERS MD
--- NOTE | 2024-04-07 17:03 | EDS_ITS ---
HPI History of Present Illness Chief Complaint: Shortness of Breath Informant: patient Narrative Narrative: History of COPD brought in by EMS worsening dyspnea cough for the last 3 days. No home oxygen. No history of diabetes. Status post aerosol treatments by EMS for wheezing. Denies fever or chills. Denies myalgias. Started with sinus congestion. Denies some diarrhea. Denies urinary symptoms. Allergies NSAIDs states prednisone would cause her mood instability. Has done Solu-Medrol previously. Prior similar symptoms: Yes PFSH PFSH Medical History Psoriasis Tobacco use Obesity HTN (hypertension) Anxiety and depression Cleft palate Home Medications ?Medication ?Instructions ?Recorded ?Last Taken ?Type clonidine HCl 0.2 mg tablet 0.2 mg PO QHS PRN sleep 02/01/24 Unknown History gabapentin 400 mg capsule 400 mg PO Q8H 02/01/24 04/07/24 History hydroxyzine pamoate 50 mg capsule 50 mg PO TID PRN anxiety 02/01/24 Unknown History mirtazapine 15 mg tablet 15 mg PO QHS 02/01/24 04/06/24 History duloxetine 60 mg capsule,delayed 60 mg PO DAILY 04/07/24 04/07/24 History release omeprazole 40 mg capsule,delayed 40 mg PO DAILY PRN heartburn 04/07/24 Unknown History release ropinirole 0.25 mg tablet 0.25 mg PO QHS PRN sleep 04/07/24 Unknown History trazodone 100 mg tablet 100 mg PO QHS 04/07/24 04/06/24 History Allergy/AdvReac Type Severity Reaction Status Date / Time NSAIDS (Non-Steroidal Allergy Unknown PT UNSURE Verified 03/03/24 15:43 Anti-Inflamma OF REACTION aspirin AdvReac Mild Abd Verified 03/03/24 15:43 cramps/diarrhea Family History (Updated 04/07/24 @ 19:[address] Lonny Hoover MD) Other Heart disease Surgical History History of ankle surgery Status post left foot surgery H/O hysterectomy with oophorectomy H/O wrist surgery Social History household members: none Smoking Status: Current every day smoker tobacco type: cigarettes substance use type: does not use ROS ROS ED Constitutional Constitutional ED: Denies chills, fever(s) or sweats ENT ENT ED: Denies sore throat Cardiovascular Cardiovascular: Denies chest pain, leg edema, palpitations or racing heartbeat Respiratory/Chest Respiratory/Chest: Reports cough and dyspnea; Denies dyspnea on exertion Gastrointestinal Gastrointestinal: Denies abdominal pain, diarrhea, nausea or vomiting Genitourinary Genitourinary ED: Denies dysuria, hematuria or urinary frequency Musculoskeletal Musculoskeletal: Denies back pain, extremity pain or neck pain Integumentary Denies rash or wounds Neurologic Neurologic: Denies headache(s), paresthesias or weakness EXAM Physical Exam Const Vital Signs: 04/07/24 16:33 04/07/24 16:36 04/07/24 16:38 Temperature 99.1 F 99.1 F Temperature Source Oral Oral Pulse Rate 85 82 Respiratory Rate 32 H 24 H Respiratory Effort Short of Breath Labored Respiratory Pattern Grunting Blood Pressure 156/75 H 156/75 H Blood Pressure Mean 102 102 Pulse Ox 95 95 Oxygen Delivery Method Room Air Room Air Room Air 04/07/24 17:08 04/07/24 17:33 04/07/24 17:38 Temperature 99 F Temperature Source Oral Pulse Rate 82 82 82 Respiratory Rate 24 H 25 H 22 H Respiratory Effort Respiratory Pattern Tachypnea Blood Pressure 111/73 111/73 Blood Pressure Mean 85 85 Pulse Ox 93 93 Oxygen Delivery Method Room Air Room Air 04/07/24 18:00 Temperature 98.9 F Temperature Source Oral Pulse Rate 92 Respiratory Rate 33 H Respiratory Effort Respiratory Pattern Blood Pressure 118/84 H Blood Pressure Mean 95 Pulse Ox 95 Oxygen Delivery Method Room Air Positive well nourished and well developed General Appearance ED: well developed and NAD HEENT Reports moist mucous membranes normocephalic and atraumatic Eyes General Eye ED: Yes normal appearance of both eyes Neck full ROM Chest Wall Chest: Negative for tenderness Resp Resp Narrative: Coarse lower lobes with mild wheeze. No distress. Effort and Inspection: symmetric chest movement; Negative for respiratory distress Cardio regular rate, regular rhythm and no murmurs Peripheral Pulses: pulses 2+ throughout GI normal to inspection, nondistended, normoactive bowel sounds and non-tender Palpation: Negative for guarding or rebound tenderness present Extremity normal to inspection General Extremety ED: Negative for edema or tenderness General Extremity: Negative for edema Neuro oriented x3 and no sensory deficits noted Sensorium / Orientation: awake and alert Skin no rashes or lesions noted and no wounds MDM MDM MDM Narrative Medical decision making narrative: Interventions / MDM: Differential diagnosis: COPD exacerbation, hypoxia, tobacco dependence Diagnosis considered but do not suspect: Pneumonia however x-ray negative My EKG interpretation: Sinus rate of 84, no ST or T wave changes artifacts noted. Imaging independently reviewed and interpreted by myself: 2 view chest x-ray: No acute process also read by radiology. External documents reviewed: N/A Test considered but not ordered:N/A ED course: Patient coarse breath sounds mild wheeze status post DuoNeb by EMS. EKG sinus rhythm. Labs obtained, chest x-ray, COVID flu RSV. Order for Solu- Medrol and additional aerosol treatments. 1840: Labs stable, slight hypokalemia 3.3. Oral replacement ordered. COVID, flu, RSV negative. Chest x-ray negative. She reported no improvement of symptoms with aerosol treatment there is no wheezing on reevaluation. Pulse ox low 90s. She was ambulated she dropped to 87% with being symptomatic per nursing. She improved with rest. She does not wear home oxygen. IV doxycycline ordered with her COPD history. Will discuss with hospitalist for admission. I discussed with Dr. Hoover for admission. Re-evaluation: stable Disposition discussed with patient/family/significant other: Patient Case discussed with consulting clinician: Hospitalist This note was generated with [employer] dictation software. It may contain incorrect words, spelling, and punctuation that were not noted in checking the note before signing. Lab Data Attestation: I reviewed the patient's lab results. Labs: Laboratory Results - last 24 hr 04/07/24 17:20 WBC 9.3 RBC 4.35 Hgb 14.4 Hct 42.9 MCV 98.6 MCH 33.1 H MCHC 33.6 RDW Std Deviation 47.4 H RDW Coeff of Eul[place] 13.1 Plt Count 145 L MPV 9.8 Immature Gran % (Auto) 0.400 Neut % (Auto) 60.7 Lymph % (Auto) 24.9 [place] % (Auto) 11.1 H Eos % (Auto) 2.3 Baso % (Auto) 0.6 Absolute Neuts (auto) 5.7 Absolute Lymphs (auto) 2.32 Nucleated RBC % 0 Sodium 140 Potassium 3.3 L Chloride 106 Carbon Dioxide 29.0 Anion Gap 5 BUN 9 Creatinine 0.88 Estim Creat Clear Calc 67.26 Est GFR (MDRD) Af Amer 82 Est GFR (MDRD) Non-Af 68 BUN/Creatinine Ratio 10.2 Glucose 165 H Calcium 9.3 Radiography Diagnostic Testing: Clinical Impression(s) from Imaging Studies Chest X-Ray 04/07/24 17:38 IMPRESSION: No acute cardiopulmonary pathology. Electronically Signed: Arturo Sweet MD at 17:50 EST , Discharge Plan Dx/Rx/DC Orders Clinical Impression: COPD exacerbation, Hypoxemia, Cough, Tobacco dependence Disposition Disposition: Acute Care Hospital [facility] Discharge Date/Time: 04/07/24 19:57
[2024-04-07] MEDS: Ipratropium/Albuterol Sulfate 3 ML AMPUL.NEB INHALATION ×2 (17:06→20:35)
[2024-04-07] MEDS: MethylPREDNISolone 125 MG/2 ML Vial 60 MG IV (17:24)
[2024-04-07 17:38] LABS: Absolute Lymphocyte Count 2.32 X10^3/uL (0.83-4.51); Absolute Neutrophil Count 5.7 X10^3/uL (2.0-7.7); Basophil# 0.06 X10^3/uL; Basophil% 0.6 % (0-1); Eosinophil# 0.21 X10^3/uL; Eosinophils% 2.3 % (0-5); Hematocrit 42.9 % (37-47); Hemoglobin 14.4 g/dL (12.0-15.0); Lymphocyte # 2.32 X10^3/ul (0.83-4.51); Lymphocyte % 24.9 % (19-41); Mean Corp Hgb Conc 33.6 g/dL (32-36); Mean Corpuscular Hgb 33.1 pg (27.0-32.0); Mean Corpuscular Volume 98.6 fL (81-99); Mean Platelet Vol. 9.8 fl (6.2-12.0); Monocyte# 1.04 X10^3/uL; Monocyte% 11.1 % (0-10); NRBC Flagged by Analyzer 0 % (0-5); Neutrophil # 5.66 X10^3/uL (2.7-7.7); Neutrophil % 60.7 % (47-70); Platelet Count 145 K/mm3 (150-450); RBC Distribution Width CV 13.1 % (11.6-14.6); RBC Distribution Width SD 47.4 fl (35.1-43.9); Red Blood Count 4.35 M/mm3 (4.2-5.4); White Blood Count 9.3 K/mm3 (4.4-11.0)
--- NOTE | 2024-04-07 17:38 | RAD_ITS ---
STUDY: X-RAY CHEST REASON FOR EXAM: Female, 68 years old. cough TECHNIQUE: PA and lateral COMPARISON: None. FINDINGS: The lungs are clear and expanded. There is no demonstrated pleural abnormality. Normal size heart. Normal mediastinum and hamida. Normal visualized pulmonary arteries. Normal visualized aortic arch and descending thoracic aorta. Dorsal spine and shoulders demonstrates degenerative changes. Normal visualized ribs, and clavicles. There is no demonstrated abnormality of the visualized soft tissue structures of the upper abdomen. RAD/Chest PA and Lateral IMPRESSION: No acute cardiopulmonary pathology. Electronically Signed: Arturo Sweet MD at 17:50 EST ,
[2024-04-07 17:42] LABS: Anion Gap 5 (5-15); BUN 9 mg/dL (7-18); BUN/Creat Ratio 10.2 RATIO (10-20); Calcium,Total 9.3 mg/dL (8.5-10.1); Chloride 106 mmol/L (98-107); Creatinine, Serum 0.88 mg/dL (0.55-1.02); EST Glomerular Filtration Rate 68 mL/min (>60); Est Glom Filt Rate - Afr Amer 82 mL/min (>60); Estimated Creatinine Clearance 67.26 ml/min; Glucose 165 mg/dL (74-106); Potassium 3.3 mmol/L (3.5-5.1); Sodium Level 140 mmol/L (136-145)
--- NOTE | 2024-04-07 19:06 | HP.PCM.HOS_ITS ---
[facility] - General General Date of Admission: 04/07/24 Date of Service: 04/07/24 Chief Complaint: Shortness of breath HPI Narrative SHANTEL NASH, is a 68 F with a significant history of tobacco abuse; COPD; and tobacco abuse who presented with 3-day history of progressively worsening shortness of breath. Associated with her symptom is dry cough and wheezing. Her cough is dry. Her wheezing is above her baseline. At home patient usually has oxygen but she does not use it. At the emergency department she was found to be hypoxic with ambulation. [facility] Medical History Psoriasis Tobacco use Obesity HTN (hypertension) Anxiety and depression Cleft palate Home Medications ?Medication ?Instructions ?Recorded ?Last Taken ?Type clonidine HCl 0.2 mg tablet 0.2 mg PO QHS PRN sleep 02/01/24 Unknown History gabapentin 400 mg capsule 400 mg PO Q8H 02/01/24 04/07/24 History hydroxyzine pamoate 50 mg capsule 50 mg PO TID PRN anxiety 02/01/24 Unknown History mirtazapine 15 mg tablet 15 mg PO QHS 02/01/24 04/06/24 History duloxetine 60 mg capsule,delayed 60 mg PO DAILY 04/07/24 04/07/24 History release omeprazole 40 mg capsule,delayed 40 mg PO DAILY PRN heartburn 04/07/24 Unknown History release ropinirole 0.25 mg tablet 0.25 mg PO QHS PRN sleep 04/07/24 Unknown History trazodone 100 mg tablet 100 mg PO QHS 04/07/24 04/06/24 History Allergy/AdvReac Type Severity Reaction Status Date / Time NSAIDS (Non-Steroidal Allergy Unknown PT UNSURE Verified 03/03/24 15:43 Anti-Inflamma OF REACTION aspirin AdvReac Mild Abd Verified 03/03/24 15:43 cramps/diarrhea Family History (Updated 04/07/24 @ 19:[address] Lonny Hoover MD) Other Heart disease Surgical History History of ankle surgery Status post left foot surgery H/O hysterectomy with oophorectomy H/O wrist surgery Social History household members: none Smoking Status: Current every day smoker tobacco type: cigarettes substance use type: does not use ROS ROS Narrative Complete view of system is negative except as stated in HPI Vital Signs Vital Signs Vital Signs: 04/07/24 16:33 04/07/24 16:36 04/07/24 16:38 Temperature 99.1 F 99.1 F Temperature Source Oral Oral Pulse Rate 85 82 Respiratory Rate 32 H 24 H Respiratory Effort Short of Breath Labored Respiratory Pattern Grunting Blood Pressure 156/75 H 156/75 H Blood Pressure Mean 102 102 Pulse Ox 95 95 Oxygen Delivery Method Room Air Room Air Room Air 04/07/24 17:08 04/07/24 17:33 04/07/24 17:38 Temperature 99 F Temperature Source Oral Pulse Rate 82 82 82 Respiratory Rate 24 H 25 H 22 H Respiratory Effort Respiratory Pattern Tachypnea Blood Pressure 111/73 111/73 Blood Pressure Mean 85 85 Pulse Ox 93 93 Oxygen Delivery Method Room Air Room Air 04/07/24 18:00 Temperature 98.9 F Temperature Source Oral Pulse Rate 92 Respiratory Rate 33 H Respiratory Effort Respiratory Pattern Blood Pressure 118/84 H Blood Pressure Mean 95 Pulse Ox 95 Oxygen Delivery Method Room Air Weight Weight: 92.034 kg Body Mass Index (BMI) 33.7 Physical Exam Narrative Physical exam: General: Well-nourished, well-developed. Head: Normocephalic, atraumatic, no tenderness Eyes: Vision is grossly intact. EOMI ENT, edentulous, no trauma, moist mucous membranes, no rhinorrhea Neck: Nontender, No thyromegaly. CVS: Regular rate and rhythm. S1-S2 present. No murmur, gallop or rub. Respiratory : Wheezing, chest wall nontender Abdomen: Soft, nontender, nondistended, normal bowel sounds, no masses : Deferred Back: Nontender, no CVA tenderness, no midline spinal tenderness, deformities, step-offs Extremities: Nontender full range of motion, no trauma Skin: Normal color, no trauma, abrasions Neuro: Alert, oriented, cranial nerves II through XII grossly intact. Psychiatry: Normal mood. Normal affect. Not depressed. Not anxious. Results Lab / Micro Data 04/07/24 17:20 04/07/24 17:20 Labs: Laboratory Results - last 24 hr 04/07/24 17:20: WBC 9.3, RBC 4.35, Hgb 14.4, Hct 42.9, MCV 98.6, MCH 33.1 H, MCHC 33.6, RDW Std Deviation 47.4 H, RDW Coeff of Eulalia 13.1, Plt Count 145 L, MPV 9.8, Immature Gran % (Auto) 0.400, Neut % (Auto) 60.7, Lymph % (Auto) 24.9, [place] % (Auto) 11.1 H, Eos % (Auto) 2.3, Baso % (Auto) 0.6, Absolute Neuts (auto) 5.7, Absolute Lymphs (auto) 2.32, Nucleated RBC % 0, Sodium 140, Potassium 3.3 L, Chloride 106, Carbon Dioxide 29.0, Anion Gap 5, BUN 9, Creatinine 0.88, Estim Creat Clear Calc 67.26, Est GFR (MDRD) Af Amer 82, Est GFR (MDRD) Non-Af 68, BUN/Creatinine Ratio 10.2, Glucose 165 H, Calcium 9.3 Micro: Microbiology 04/07/24 17:26 Mucosa - Nose SARS-CoV-2, Influenza & RSV (PCR) - Final Imaging Radiology Impression Chest X-Ray 04/07/24 17:38 IMPRESSION: No acute cardiopulmonary pathology. Electronically Signed: Arturo Sweet MD at 17:50 EST Reading Location ID and State: [address] [place] [address] Tel , Service support , Assessment & Plan Assessment/Plan (1) Tobacco dependence: (2) Hypoxemia: (3) COPD exacerbation: PLAN: Plan COPD exacerbation Chest x-ray independently reviewed showed no acute cardiopulmonary process Report psychosis of prednisone to Solu-Medrol. Scheduled DuoNeb Albuterol as needed Solu-Medrol ordered. Doxycycline was given at the emergency department. No leukocytosis. Coughing up productive. Will hold off antibiotics at this time. Monitor BMP and CBC Tobacco abuse Counseled. Nicotine patch ordered. Depression Continue home antidepressants. Advance care planning: Discussed with patient and family advanced directives as well as CODE STATUS. Explained various CODE STATUS: FULL CODE, DNR CCA, DNR CCA with no intubation, and DNR CC- and what each meant. Patient elected to be a DNR CCA with no intubation. Patient's son, Jemal is a surrogate decision maker. Order was placed. Time spent on discussion 16 minutes. Time spent in the patient's overall evaluation,decision-making process, review of diagnostic data, adjustment of management, discussion with other providers, nursing and ancillary staff involved in patient's care documentation, 65 minutes. Charges/Coding Visit Charges Inpatient E&M: 08366 Init Hosp L3 Procedures Hospitalists Procedures: 80596 Advncd Care Plan 30 Min
[2024-04-07] MEDS: Doxycycline 100 MG in 0.9% Normal Saline (250mL Bag) 250 ML 250 MG IV (19:17)
[2024-04-07] MEDS: Potassium Chloride Oral Tablet 20 MEQ PO (19:35)
[2024-04-07] MEDS: Gabapentin 400 MG Capsule PO (22:32)
[2024-04-07] MEDS: traZODone 100 MG Tablet PO (22:32)
[2024-04-07] MEDS: Pantoprazole Sodium 40 MG Tablet PO (22:32)
[2024-04-07] MEDS: Pramipexole Di-HCl 0.125 MG Tablet PO (22:32)
[2024-04-07] MEDS: Mirtazapine 15 MG Tablet PO (22:32)
[2024-04-07] MEDS: Albuterol 2.5 MG/3 ML VIAL.NEB. INHALATION (23:29)
[2024-04-08] VITALS (8 sets, daily range): BP systolic 111–116; BP diastolic 57–60; PULSE 75–96; RESP 15–24; TEMP 36.6–36.9; O2SAT 86–94
[2024-04-08] MEDS: Gabapentin 400 MG Capsule PO ×3 (05:49→20:08)
[2024-04-08] MEDS: Enoxaparin 40 MG/0.4 ML Syringe SC (05:49)
[2024-04-08] MEDS: 0.9% Saline Lock 10 ML Syringe IV ×3 (05:49→20:08)
[2024-04-08] MEDS: Ipratropium/Albuterol Sulfate 3 ML AMPUL.NEB INHALATION ×4 (07:20→19:54)
[2024-04-08 08:18] LABS: Absolute Lymphocyte Count 1.09 X10^3/uL (0.83-4.51); Absolute Neutrophil Count 12.1 X10^3/uL (2.0-7.7); Basophil# 0.05 X10^3/uL; Basophil% 0.4 % (0-1); Eosinophil# 0.01 X10^3/uL; Eosinophils% 0.1 % (0-5); Hematocrit 41.1 % (37-47); Hemoglobin 14.1 g/dL (12.0-15.0); Lymphocyte # 1.09 X10^3/ul (0.83-4.51); Lymphocyte % 7.8 % (19-41); Mean Corp Hgb Conc 34.3 g/dL (32-36); Mean Corpuscular Hgb 33.2 pg (27.0-32.0); Mean Corpuscular Volume 96.7 fL (81-99); Mean Platelet Vol. 9.6 fl (6.2-12.0); Monocyte# 0.56 X10^3/uL; NRBC Flagged by Analyzer 0 % (0-5); Neutrophil # 12.09 X10^3/uL (2.7-7.7); Neutrophil % 86.9 % (47-70); Platelet Count 135 K/mm3 (150-450); RBC Distribution Width CV 12.7 % (11.6-14.6); RBC Distribution Width SD 45.4 fl (35.1-43.9); Red Blood Count 4.25 M/mm3 (4.2-5.4); White Blood Count 13.9 K/mm3 (4.4-11.0)
[2024-04-08 08:28] LABS: Anion Gap 4 (5-15); BUN 10 mg/dL (7-18); BUN/Creat Ratio 13.3 RATIO (10-20); Calcium,Total 9.3 mg/dL (8.5-10.1); Chloride 111 mmol/L (98-107); Creatinine, Serum 0.75 mg/dL (0.55-1.02); EST Glomerular Filtration Rate 81 mL/min (>60); Est Glom Filt Rate - Afr Amer 98 mL/min (>60); Estimated Creatinine Clearance 74.61 ml/min; Glucose 179 mg/dL (74-106); Sodium Level 140 mmol/L (136-145)
[2024-04-08] MEDS: DULoxetine Hcl 60 MG Capsule PO (09:52)
--- NOTE | 2024-04-08 10:21 | CASEMGMT ---
KELLY TOBIAS Assessment Face to Face with patient for initial transition planning/care coordination assessment. KELLY TOBIAS introduced self and role at [facility], pt voices understanding. Pt is A&Ox4 and is resting comfortably in bed and is calm. Care providers, pharmacy, and demographics verified. Admitting dx: COPD Exacerbation LACE Strata: 2 PCP: Trev Conway Specialists: [facility] Preferred Pharmacy: [facility] Insurance: [facility] Prescription Benefit: Yes LNOK: Jemal Ignacio (son) Living Arrangements: Pt lives with her son, IDA, and 4 grandchildren in a single story home with 2 steps to enter ADLs/IADLs: Reports ind Transportation: Pt does not drive. Pt states that her family normally drives her but they currently are without a car. Pt states that her family is working on getting another vehicle and that she has been taking public transportation during this time including cabs. DME: Pt states that she wears home oxygen and that she has a concentrator but no portability. Pt states that she is unsure of what DME company she goes through. Pt states that her family does not know what company it is supplied through. TC to the pt insurance and [facility] states that they do not have any current DME company activity. The pt insurance does state that they are in network with [employer]. Pt states that she used to go through [employer] but the equipment through [employer] was revoked. TC to [facility]. [facility] states that the equipment was revoked in 2019 and that they do not know what company the pt uses now. Pt reports that it may be a company out of [place]. TC to [employer] and [employer] states that the pt is not in their system. TC to pt PCP, no answer. TC to [facility] states the pt equipment was revoked in 2016 and that the pt is not currently in their system. TC to [employer] and [facility] states pt is not in their system. TC to [facility] and [facility] states that the pt was recently active but that the pt in not affiliated with them any longer as [facility] attempted to pickup the pt equipment but they have the pt's previous address on file. Pt states that she moved 4 months ago. I anticipate pt still has the concentrator from [employer] but is not associated with the DME company any longer. [facility] notified. This KELLY TOBIAS reviewed a verbal list of local in-network DME companies to the pt at this time. Pt prefers [employer]. CM to follow. HHC/SNF: Denies history or needs Pt?s goal: Return home Plan: Home, follow for oxygen needs. 6-Click score is 19. Pt states that she is independent and does not need or want PT or OT here in the hospital. Pt states that she feels safe returning home with her family at the time of DC and denies further questions or concerns at this time. CM to follow. Iliana Hargrove RN CM
--- NOTE | 2024-04-08 11:29 | CPS ---
Pt currently having a coughing fit, prior to aerosol. RT called RN to see if Robitussin or cough drops could be ordered at pt's request.
[2024-04-08] MEDS: Acetaminophen 325 MG Tablet 650 MG PO (14:06)
--- NOTE | 2024-04-08 15:00 | PN_ITS ---
Subjective Subjective Patient seen and examined. She still complain of feeling weak and short of breath. She says she feels the same as when she came in. She admits to coughing though it is a dry cough. She denies any chest pain, palpitations, dizziness, nausea or vomiting. Review of systems is otherwise negative. She admits to still smoking. Objective Data Objective Data Vital Signs: Vital Signs Temp Pulse Resp BP Pulse Ox O2 Del Method O2 Flow Rate 98.2 F 86 24 H 113/60 92 Nasal Cannula 2 04/08/24 09:32 04/08/24 14:41 04/08/24 14:41 04/08/24 09:32 04/08/24 09:32 04/08/24 09:32 04/08/24 09:32 Oxygen Flow Rate (L/min) 2 Oxygen Delivery Method Nasal Cannula Weight: 198 lb 8.244 oz Body Mass Index (BMI) 33.0 Intake & Output: Intake and Output for Last 24 Hours 04/06/24 04/07/24 04/08/24 23:59 23:59 23:59 Intake Total 260 / 260 Balance 260 / 260 Lab / Micro Data 04/08/24 08:10 04/08/24 08:10 Labs: Laboratory Results - last 24 hr 04/07/24 17:20: WBC 9.3, RBC 4.35, Hgb 14.4, Hct 42.9, MCV 98.6, MCH 33.1 H, MCHC 33.6, RDW Std Deviation 47.4 H, RDW Coeff of Eulalia 13.1, Plt Count 145 L, MPV 9.8, Immature Gran % (Auto) 0.400, Neut % (Auto) 60.7, Lymph % (Auto) 24.9, [place] % (Auto) 11.1 H, Eos % (Auto) 2.3, Baso % (Auto) 0.6, Absolute Neuts (auto) 5.7, Absolute Lymphs (auto) 2.32, Nucleated RBC % 0, Sodium 140, Potassium 3.3 L, Chloride 106, Carbon Dioxide 29.0, Anion Gap 5, BUN 9, Creatinine 0.88, Estim Creat Clear Calc 67.26, Est GFR (MDRD) Af Amer 82, Est GFR (MDRD) Non-Af 68, BUN/Creatinine Ratio 10.2, Glucose 165 H, Calcium 9.3 04/08/24 08:10: WBC 13.9 H, RBC 4.25, Hgb 14.1, Hct 41.1, MCV 96.7, MCH 33.2 H, MCHC 34.3, RDW Std Deviation 45.4 H, RDW Coeff of Eulalia 12.7, Plt Count 135 L, MPV 9.6, Immature Gran % (Auto) 0.800, Neut % (Auto) 86.9 H, Lymph % (Auto) 7.8 L, [place] % (Auto) 4.0, Eos % (Auto) 0.1, Baso % (Auto) 0.4, Absolute Neuts (auto) 12.1 H, Absolute Lymphs (auto) 1.09, Nucleated RBC % 0, Sodium 140, Potassium 4.0, Chloride 111 H, Carbon Dioxide 25.0, Anion Gap 4 L, BUN 10, Creatinine 0.75, Estim Creat Clear Calc 74.61, Est GFR (MDRD) Af Amer 98, Est GFR (MDRD) Non-Af 81, BUN/Creatinine Ratio 13.3, Glucose 179 H, Calcium 9.3 Micro: Microbiology 04/07/24 17:26 Mucosa - Nose SARS-CoV-2, Influenza & RSV (PCR) - Final Radiography Diagnostic Testing: Radiology Impression Chest X-Ray 04/07/24 17:38 IMPRESSION: No acute cardiopulmonary pathology. Electronically Signed: Arturo Sweet MD at 17:50 EST Reading Location ID and State: [address] [place] [address] Tel , Service support , Physical Exam Const alert, oriented x3 and no apparent distress Constitutional Narrative: looks weak Orientation / Consciousness: lethargic HEENT normocephalic, head/scalp atraumatic, moist oral mucous membranes and oropharynx normal Eyes PERRL and EOMs intact bilaterally Neck no lymphadenopathy and supple Lymph Lymphatic: no lymphadenopathy noted Resp Resp Narrative: mildly diminished breath sounds bilaterally, few coarse crackles. On 2L of oxygen by nasal canula. Cardio regular rate, regular rhythm, S1 normal heart sound, S2 normal heart sound and no murmurs GI normal to inspection, nondistended, normoactive bowel sounds, soft to palpation, non-tender and non-distended Extremity normal capillary refill, no clubbing, cyanosis or edema and no calf tenderness General Extremity: no tenderness to palpation of joints or extremities Skin General Skin Exam: no breakdown Neuro CN's II-XII intact bilaterally, no focal motor deficits and no sensory deficits noted Motor Exam: general weakness Psych thought process normal Mood & Affect: flat affect Assessment & Plan Assessment/Plan (1) Hypoxemia: (2) COPD exacerbation: (3) Tobacco dependence: PLAN: Plan #HYpoxia due to acute COPD exacerbation * Still feels short of breath. Remains on 2 L of oxygen. * On IV Solu-Medrol. Breathing treatments bronchodilators. Titrate oxygen to maintain saturation above 90%. * Antibiotics were held as she did not have any leukocytosis. * #Nicotine dependence: * Patient continues to smoke a pack a day and says she smoked for many many many years. * She says every time she thinks of quitting, it makes her smoke some more. * counseled to quit. * Nicotine patch 21mg daily * #Depression: on duloxetine and mirtazapine #restless leg syndrome: on ropinirole DVT prophylaxis: lovenox Charges/Coding Visit Charges Inpatient E&M: 60013 Subs Hosp L2
[2024-04-08] MEDS: traZODone 100 MG Tablet PO (20:07)
[2024-04-08] MEDS: Mirtazapine 15 MG Tablet PO (20:07)
[2024-04-09] VITALS (9 sets, daily range): BP systolic 97–136; BP diastolic 43–68; PULSE 60–90; RESP 15–22; TEMP 36.2–36.7; O2SAT 92–94
[2024-04-09] MEDS: Enoxaparin 40 MG/0.4 ML Syringe SC (05:33)
[2024-04-09 07:16] LABS: Absolute Lymphocyte Count 1.58 X10^3/uL (0.83-4.51); Absolute Neutrophil Count 18.3 X10^3/uL (2.0-7.7); Basophil# 0.04 X10^3/uL; Basophil% 0.2 % (0-1); Eosinophil# 0.01 X10^3/uL; Hematocrit 41.2 % (37-47); Hemoglobin 13.8 g/dL (12.0-15.0); Lymphocyte # 1.58 X10^3/ul (0.83-4.51); Lymphocyte % 7.5 % (19-41); Mean Corp Hgb Conc 33.5 g/dL (32-36); Mean Corpuscular Hgb 32.6 pg (27.0-32.0); Mean Corpuscular Volume 97.4 fL (81-99); Mean Platelet Vol. 10.1 fl (6.2-12.0); Monocyte# 0.86 X10^3/uL; Monocyte% 4.1 % (0-10); NRBC Flagged by Analyzer 0 % (0-5); Neutrophil # 18.27 X10^3/uL (2.7-7.7); Neutrophil % 87.3 % (47-70); Platelet Count 141 K/mm3 (150-450); RBC Distribution Width CV 12.6 % (11.6-14.6); RBC Distribution Width SD 45.1 fl (35.1-43.9); Red Blood Count 4.23 M/mm3 (4.2-5.4); White Blood Count 20.9 K/mm3 (4.4-11.0)
[2024-04-09] MEDS: DULoxetine Hcl 60 MG Capsule PO (08:35)
[2024-04-09 09:25] LABS: Anion Gap 3 (5-15); BUN 16 mg/dL (7-18); BUN/Creat Ratio 23.4 RATIO (10-20); Calcium,Total 9.2 mg/dL (8.5-10.1); Chloride 111 mmol/L (98-107); Creatinine, Serum 0.68 mg/dL (0.55-1.02); EST Glomerular Filtration Rate 91 mL/min (>60); Est Glom Filt Rate - Afr Amer 110 mL/min (>60); Estimated Creatinine Clearance 74.61 ml/min; Glucose 188 mg/dL (74-106); Potassium 4.7 mmol/L (3.5-5.1); Sodium Level 139 mmol/L (136-145)
[2024-04-09] MEDS: Ipratropium/Albuterol Sulfate 3 ML AMPUL.NEB INHALATION ×3 (10:40→19:18)
--- NOTE | 2024-04-09 11:42 | PN_ITS ---
Subjective Subjective Patient seen and examined. She still complains of feeling short of breath and is wheezing. She admits to coughing, and is expectorating sputum. She says she feels weak and tired. Review of systems is otherwise negative. Objective Data Objective Data Vital Signs: Vital Signs Temp Pulse Resp BP Pulse Ox O2 Del Method O2 Flow Rate 97.7 F L 82 20 H 119/62 93 Nasal Cannula 2 04/09/24 08:32 04/09/24 11:23 04/09/24 11:23 04/09/24 08:32 04/09/24 08:32 04/09/24 08:32 04/09/24 08:32 Oxygen Flow Rate (L/min) 2 Oxygen Delivery Method Nasal Cannula Weight: 198 lb 8.244 oz Body Mass Index (BMI) 33.0 Intake & Output: Intake and Output for Last 24 Hours 04/07/24 04/08/24 04/09/24 23:59 23:59 23:59 Intake Total 260 / 260 1200 / 1200 Balance 260 / 260 1200 / 1200 Lab / Micro Data 04/09/24 06:54 04/09/24 06:54 Labs: Laboratory Results - last 24 hr 04/09/24 06:54: WBC 20.9 H, RBC 4.23, Hgb 13.8, Hct 41.2, MCV 97.4, MCH 32.6 H, MCHC 33.5, RDW Std Deviation 45.1 H, RDW Coeff of Eulalia 12.6, Plt Count 141 L, MPV 10.1, Immature Gran % (Auto) 0.900, Neut % (Auto) 87.3 H, Lymph % (Auto) 7.5 L, [place] % (Auto) 4.1, Eos % (Auto) 0.0, Baso % (Auto) 0.2, Absolute Neuts (auto) 18.3 H, Absolute Lymphs (auto) 1.58, Nucleated RBC % 0, Sodium 139, Potassium 4.7, Chloride 111 H, Carbon Dioxide 25.0, Anion Gap 3 L, BUN 16, Creatinine 0.68, Estim Creat Clear Calc 74.61, Est GFR (MDRD) Af Amer 110, Est GFR (MDRD) Non-Af 91, BUN/Creatinine Ratio 23.4 H, Glucose 188 H, Calcium 9.2 Micro: Microbiology 04/07/24 17:26 Mucosa - Nose SARS-CoV-2, Influenza & RSV (PCR) - Final Physical Exam Const alert and oriented x3 Constitutional Narrative: looks weak and frail HEENT normocephalic, head/scalp atraumatic, moist oral mucous membranes and oropharynx normal Eyes PERRL and EOMs intact bilaterally Neck no lymphadenopathy and supple Lymph Lymphatic: no lymphadenopathy noted Resp Resp Narrative: mildly diminished breath sounds bilaterally, few coarse crackles. still On 2L of oxygen by nasal canula. Cardio regular rate, regular rhythm, S1 normal heart sound, S2 normal heart sound and no murmurs GI normal to inspection, nondistended, normoactive bowel sounds, soft to palpation, non-tender and non-distended Extremity normal capillary refill, no clubbing, cyanosis or edema and no calf tenderness General Extremity: no tenderness to palpation of joints or extremities Skin General Skin Exam: no breakdown Neuro CN's II-XII intact bilaterally, no focal motor deficits and no sensory deficits noted Motor Exam: general weakness Psych thought process normal Mood & Affect: flat affect Assessment & Plan Assessment/Plan (1) Hypoxemia: (2) COPD exacerbation: (3) Tobacco dependence: PLAN: Plan #HYpoxia due to acute COPD exacerbation * Still feels short of breath. Remains on 2 L of oxygen. * On IV Solu-Medrol. Breathing treatments with bronchodilators. Titrate oxygen to maintain saturation above 90%. * Antibiotics were held as she did not have any leukocytosis. * COVID influenza and RSV screen was negative. Will get a full respiratory panel. * #Nicotine dependence: * Patient continues to smoke a pack a day and says she smoked for many many many years. * She says every time she thinks of quitting, it makes her smoke some more. * counseled to quit. * Nicotine patch 21mg daily * #Depression: on duloxetine and mirtazapine #restless leg syndrome: on ropinirole DVT prophylaxis: lovenox Charges/Coding Visit Charges Inpatient E&M: 61387 Subs Hosp L2
[2024-04-09] MEDS: Gabapentin 400 MG Capsule PO ×2 (14:02→20:57)
[2024-04-09] MEDS: 0.9% Saline Lock 10 ML Syringe IV ×2 (14:02→20:57)
--- NOTE | 2024-04-09 14:40 | CASEMGMT ---
Social Work Pt initiated POA documents w/SW, pt listed her son Jemal as POA. She does not know her other son's address however. Pt is to find out her son's address in [place] and let the SW on Thursday know so the address can be added, and the documents can then be copied and placed on the chart. Pt has the originals. SW will follow up on Thursday. KIM Early
[2024-04-09] MEDS: Acetaminophen 325 MG Tablet 650 MG PO (20:55)
[2024-04-09] MEDS: traZODone 100 MG Tablet PO (20:56)
[2024-04-09] MEDS: Mirtazapine 15 MG Tablet PO (20:56)
[2024-04-09] MEDS: guaiFENesin 10 ML UDC (200MG/10ML) PO (23:16)
[2024-04-10] VITALS (10 sets, daily range): BP systolic 123–133; BP diastolic 58–61; PULSE 61–88; RESP 18–20; TEMP 36.5–36.8; O2SAT 90–93
[2024-04-10] MEDS: Enoxaparin 40 MG/0.4 ML Syringe SC (06:37)
[2024-04-10] MEDS: Gabapentin 400 MG Capsule PO ×3 (06:37→22:07)
[2024-04-10] MEDS: 0.9% Saline Lock 10 ML Syringe IV ×3 (06:41→22:08)
[2024-04-10 06:48] LABS: Absolute Neutrophil Count 11.5 X10^3/uL (2.0-7.7); Basophil# 0.03 X10^3/uL; Basophil% 0.2 % (0-1); Eosinophil# 0.02 X10^3/uL; Eosinophils% 0.1 % (0-5); Hematocrit 38.1 % (37-47); Hemoglobin 13.2 g/dL (12.0-15.0); Lymphocyte % 11.8 % (19-41); Mean Corp Hgb Conc 34.6 g/dL (32-36); Mean Corpuscular Hgb 33.4 pg (27.0-32.0); Mean Corpuscular Volume 96.5 fL (81-99); Mean Platelet Vol. 10.3 fl (6.2-12.0); Monocyte# 0.99 X10^3/uL; Monocyte% 6.9 % (0-10); NRBC Flagged by Analyzer 0 % (0-5); Neutrophil # 11.48 X10^3/uL (2.7-7.7); Neutrophil % 79.8 % (47-70); Platelet Count 141 K/mm3 (150-450); RBC Distribution Width CV 12.7 % (11.6-14.6); RBC Distribution Width SD 45.8 fl (35.1-43.9); Red Blood Count 3.95 M/mm3 (4.2-5.4); White Blood Count 14.4 K/mm3 (4.4-11.0)
[2024-04-10] MEDS: Ipratropium/Albuterol Sulfate 3 ML AMPUL.NEB INHALATION ×3 (06:51→19:28)
[2024-04-10] MEDS: DULoxetine Hcl 60 MG Capsule PO (07:45)
[2024-04-10 07:59] LABS: Anion Gap 2 (5-15); BUN 18 mg/dL (7-18); BUN/Creat Ratio 28.8 RATIO (10-20); Calcium,Total 9.1 mg/dL (8.5-10.1); Chloride 111 mmol/L (98-107); Creatinine, Serum 0.62 mg/dL (0.55-1.02); EST Glomerular Filtration Rate 101 mL/min (>60); Est Glom Filt Rate - Afr Amer 122 mL/min (>60); Estimated Creatinine Clearance 74.61 ml/min; Glucose 177 mg/dL (74-106); Potassium 4.4 mmol/L (3.5-5.1); Sodium Level 140 mmol/L (136-145)
--- NOTE | 2024-04-10 10:47 | PN_ITS ---
Subjective Subjective Patient seen and examined. She still complains of shortness of breath. She is wheezing. She denied any chest pain, palpitations, dizziness, nausea, vomiting or any other symptoms. Review of systems is otherwise negative. Objective Data Objective Data Vital Signs: Vital Signs Temp Pulse Resp BP Pulse Ox O2 Del Method O2 Flow Rate 97.9 F 66 18 124/61 H 93 Nasal Cannula 2 04/10/24 08:26 04/10/24 08:26 04/10/24 08:26 04/10/24 08:26 04/10/24 08:26 04/10/24 08:04/10/24 08:26 Oxygen Flow Rate (L/min) 2 Oxygen Delivery Method Nasal Cannula Weight: 198 lb 8.244 oz Body Mass Index (BMI) 33.0 Intake & Output: Intake and Output for Last 24 Hours 04/08/24 04/09/24 04/10/24 23:59 23:59 23:59 Intake Total 1200 / 1200 480 / 480 Balance 1200 / 1200 480 / 480 Lab / Micro Data 04/10/24 06:25 04/10/24 06:25 Labs: Laboratory Results - last 24 hr 04/10/24 06:25: WBC 14.4 H, RBC 3.95 L, Hgb 13.2, Hct 38.1, MCV 96.5, MCH 33.4 H , MCHC 34.6, RDW Std Deviation 45.8 H, RDW Coeff of Eulalia 12.7, Plt Count 141 L, MPV 10.3, Immature Gran % (Auto) 1.200 H, Neut % (Auto) 79.8 H, Lymph % (Auto) 11.8 L, [place] % (Auto) 6.9, Eos % (Auto) 0.1, Baso % (Auto) 0.2, Absolute Neuts (auto) 11.5 H, Absolute Lymphs (auto) 1.70, Nucleated RBC % 0, Sodium 140, Potassium 4.4, Chloride 111 H, Carbon Dioxide 27.0, Anion Gap 2 L, BUN 18, Creatinine 0.62, Estim Creat Clear Calc 74.61, Est GFR (MDRD) Af Amer 122, Est GFR (MDRD) Non-Af 101, BUN/Creatinine Ratio 28.8 H, Glucose 177 H, Calcium 9.1 Micro: Microbiology 04/09/24 13:30 Mucosa - Nasopharyngeal Respiratory Panel (PCR) - Final 04/07/24 17:26 Mucosa - Nose SARS-CoV-2, Influenza & RSV (PCR) - Final Physical Exam Const alert, oriented x3 and no apparent distress Constitutional Narrative: looks weak and frail General Appearance: cooperative HEENT normocephalic, head/scalp atraumatic, moist oral mucous membranes and oropharynx normal Eyes PERRL and EOMs intact bilaterally Neck no lymphadenopathy and supple Lymph Lymphatic: no lymphadenopathy noted Resp Resp Narrative: mildly diminished breath sounds bilaterally, still has a few coarse crackles. still On 2L of oxygen by nasal canula. Cardio regular rate, regular rhythm, S1 normal heart sound, S2 normal heart sound and no murmurs GI normal to inspection, nondistended, normoactive bowel sounds and soft to palpation Extremity normal capillary refill, no clubbing, cyanosis or edema and no calf tenderness General Extremity: no tenderness to palpation of joints or extremities Skin General Skin Exam: no breakdown Neuro CN's II-XII intact bilaterally, no focal motor deficits and no sensory deficits noted Motor Exam: general weakness Psych thought process normal Appearance: appropriate Assessment & Plan Assessment/Plan (1) Hypoxemia: (2) COPD exacerbation: (3) Tobacco dependence: PLAN: Plan #HYpoxia due to acute COPD exacerbation * She still feels short of breath. Remains on 2 L of oxygen. * On IV Solu-Medrol. Breathing treatments with bronchodilators. Titrate oxygen to maintain saturation above 90%. * wbc is 14.4 today. Wbc was 20.9 * COVID influenza and RSV screen was negative. Full respiratory panel was negative. * continue breathing treatment with bronchodilators and steroids * TItrate oxygen to maintain sats >90% * #Nicotine dependence: * Patient continues to smoke a pack a day and says she smoked for many many many years. * She says every time she thinks of quitting, it makes her smoke some more. * counseled to quit. * Nicotine patch 21mg daily * #Depression: on duloxetine and mirtazapine #restless leg syndrome: on ropinirole DVT prophylaxis: lovenox Charges/Coding Visit Charges Inpatient E&M: 69252 Subs Hosp L2
[2024-04-10] MEDS: BENZOCAINE/MENTHOL 1 LOZENGE MUCOUS MEM (17:35)
[2024-04-10] MEDS: traZODone 100 MG Tablet PO (22:07)
[2024-04-10] MEDS: Acetaminophen 325 MG Tablet 650 MG PO (22:07)
[2024-04-10] MEDS: Mirtazapine 15 MG Tablet PO (22:08)
[2024-04-11] VITALS (9 sets, daily range): BP systolic 128–143; BP diastolic 55–74; PULSE 64–79; RESP 18–20; TEMP 36.4–37; O2SAT 88–96
[2024-04-11] MEDS: Pramipexole Di-HCl 0.125 MG Tablet PO ×2 (01:12→20:04)
[2024-04-11] MEDS: 0.9% Saline Lock 10 ML Syringe IV ×4 (05:36→22:01)
[2024-04-11] MEDS: Enoxaparin 40 MG/0.4 ML Syringe SC (05:36)
[2024-04-11] MEDS: Gabapentin 400 MG Capsule PO ×3 (05:36→20:04)
[2024-04-11] MEDS: Ipratropium/Albuterol Sulfate 3 ML AMPUL.NEB INHALATION ×4 (07:14→20:12)
[2024-04-11 07:16] LABS: Absolute Lymphocyte Count 1.69 X10^3/uL (0.83-4.51); Absolute Neutrophil Count 7.2 X10^3/uL (2.0-7.7); Basophil# 0.03 X10^3/uL; Basophil% 0.3 % (0-1); Eosinophil# 0.01 X10^3/uL; Eosinophils% 0.1 % (0-5); Hematocrit 38.2 % (37-47); Hemoglobin 12.8 g/dL (12.0-15.0); Lymphocyte # 1.69 X10^3/ul (0.83-4.51); Lymphocyte % 17.4 % (19-41); Mean Corp Hgb Conc 33.5 g/dL (32-36); Mean Corpuscular Hgb 32.7 pg (27.0-32.0); Mean Corpuscular Volume 97.7 fL (81-99); Mean Platelet Vol. 10.3 fl (6.2-12.0); Monocyte% 7.2 % (0-10); NRBC Flagged by Analyzer 0 % (0-5); Neutrophil # 7.19 X10^3/uL (2.7-7.7); Neutrophil % 73.8 % (47-70); Platelet Count 143 K/mm3 (150-450); RBC Distribution Width CV 12.7 % (11.6-14.6); RBC Distribution Width SD 45.2 fl (35.1-43.9); Red Blood Count 3.91 M/mm3 (4.2-5.4); White Blood Count 9.7 K/mm3 (4.4-11.0)
[2024-04-11 07:55] LABS: Anion Gap 2 (5-15); BUN 19 mg/dL (7-18); BUN/Creat Ratio 28.6 RATIO (10-20); Chloride 109 mmol/L (98-107); Creatinine, Serum 0.66 mg/dL (0.55-1.02); EST Glomerular Filtration Rate 94 mL/min (>60); Est Glom Filt Rate - Afr Amer 113 mL/min (>60); Estimated Creatinine Clearance 74.61 ml/min; Glucose 184 mg/dL (74-106); Potassium 4.6 mmol/L (3.5-5.1); Sodium Level 139 mmol/L (136-145)
[2024-04-11] MEDS: DULoxetine Hcl 60 MG Capsule PO (09:00)
--- NOTE | 2024-04-11 12:06 | CASEMGMT ---
Social Work Pt provided needed address for son. HCPOA and living will completed. Copy placed on pt chart and original given to pt. LYNDSAY Bailey
[2024-04-11] MEDS: BENZOCAINE/MENTHOL 1 LOZENGE MUCOUS MEM ×2 (13:06→20:18)
--- NOTE | 2024-04-11 15:17 | CT_ITS ---
EXAM: CT ANGIOGRAPHY CHEST WITHOUT AND WITH INTRAVENOUS CONTRAST CLINICAL INDICATION: persistent hypoxia TECHNIQUE: Helically acquired angiography images were obtained of the chest without and with intravenous contrast. This CT exam was performed using one or more of the following dose reduction techniques: automated exposure control, adjustment of the mA and/or kV according to patient size, and/or use of iterative reconstruction technique. MIP reconstructed images were created and reviewed. CONTRAST: IV 100mL [id number] COMPARISON: No relevant prior studies available. FINDINGS: PULMONARY ARTERIES: Unremarkable. Normal in caliber. No evidence of pulmonary embolism. AORTA: Unremarkable. Normal in caliber. No evidence of dissection. GREAT VESSELS OF AORTIC ARCH: Unremarkable. Normal in caliber. No evidence of dissection. LUNGS AND PLEURAL SPACES: There is bibasilar atelectasis greater on the left. No mass. No pleural effusion or thickening. No pneumothorax. HEART: Unremarkable. Heart size is normal. No pericardial effusion. No significant coronary artery calcifications. MEDIASTINUM: Unremarkable. No mediastinal or hilar adenopathy. Esophagus is unremarkable. No hiatal hernia. THYROID: Unremarkable. No thyroid lesions. BONES/JOINTS: Unremarkable. No suspicious lytic or blastic abnormality. CT/CTA Chest W/WO Contrast IMPRESSION: No evidence of pulmonary embolus. There is bibasilar atelectasis. Electronically Signed: Lon Snow MD at 16:26 EST ,
[2024-04-11] MEDS: Mirtazapine 15 MG Tablet PO (19:55)
[2024-04-11] MEDS: traZODone 100 MG Tablet PO (19:56)
[2024-04-11] MEDS: Acetaminophen 325 MG Tablet 650 MG PO (19:57)
[2024-04-11] MEDS: guaiFENesin 1,200 MG Tablet 1200 MG PO (19:58)
[2024-04-11] MEDS: Pantoprazole Sodium 40 MG Tablet PO (20:04)
--- NOTE | 2024-04-11 21:22 | PN.HOSP_ITS ---
Reason for Visit Reason for Visit: Shortness of breath Subjective Subjective Mrs. Mayberry a 68-year-old female with a history of tobacco abuse who is currently still smoking and presented to the emergency department with acute shortness of breath. She reported 3-day history of progressively worsening shortness of breath at the time of admission and reported that her cough is dry nonproductive and she felt like she was wheezing. Patient does have oxygen at home and is to be wearing it at night but does not typically wear it. She denied any chest pain, fever, or chills. In the emergency department she was found to be hypoxic with ambulation and admission was requested. Vital signs on presentation showed a temperature of 99.1, heart rate 85, respiratory rate was 32 with a repeat at 24, blood pressure was 156/75 and pulse ox was 95% on room air. CBC was unremarkable with no left shift. She has noted to have thrombocytopenia which appears to be chronic. She did have a monocytosis at that time. Chemistry panel showed mild hypokalemia at 3.3 which is since resolved with supplementation. Her glucose was 165. Chest x-ray was unremarkable. Respiratory viral panel and COVID/flu/RSV were negative. She was admitted to the medical surgical floor placed on treatment for acute exacerbation of COPD with aggressive pulmonary toilet utilizing scheduled and as needed nebulizers, IV steroids, and incentive spirometry with Pep therapy. Patient states she feels a little bit better today. She still requiring supplemental oxygen for hypoxemia. At rest she is on 3 L and needed up to 6 L with ambulation. Objective Data Objective Data Vital Signs: Vital Signs Temp Pulse Resp BP Pulse Ox O2 Del Method O2 Flow Rate 98.6 F 77 18 135/66 H 94 Nasal Cannula 3 04/11/24 20:00 04/11/24 20:00 04/11/24 20:00 04/11/24 20:00 04/11/24 20:00 04/11/24 20:16 04/11/24 20:00 Oxygen Flow Rate (L/min) 3 Oxygen Delivery Method Nasal Cannula Weight: 90.045 kg Body Mass Index (BMI) 33.0 Intake & Output: Intake and Output for Last 24 Hours 04/09/24 04/10/24 04/11/24 23:59 23:59 23:59 Intake Total 480 / 480 650 / 650 Balance 480 / 480 650 / 650 Lab / Micro Data 04/11/24 06:44 04/11/24 06:44 Labs: Laboratory Results - last 24 hr 04/11/24 06:44: WBC 9.7, RBC 3.91 L, Hgb 12.8, Hct 38.2, MCV 97.7, MCH 32.7 H, MCHC 33.5, RDW Std Deviation 45.2 H, RDW Coeff of [place] 12.7, Plt Count 143 L, MPV 10.3, Immature Gran % (Auto) 1.200 H, Neut % (Auto) 73.8 H, Lymph % (Auto) 17.4 L, [place] % (Auto) 7.2, Eos % (Auto) 0.1, Baso % (Auto) 0.3, Absolute Neuts (auto) 7.2, Absolute Lymphs (auto) 1.69, Nucleated RBC % 0, Sodium 139, Potassium 4.6, Chloride 109 H, Carbon Dioxide 28.0, Anion Gap 2 L, BUN 19 H, Creatinine 0.66, Estim Creat Clear Calc 74.61, Est GFR (MDRD) Af Amer 113, Est GFR (MDRD) Non-Af 94, BUN/Creatinine Ratio 28.6 H, Glucose 184 H, Calcium 9.0 Micro: Microbiology 04/09/24 13:30 Mucosa - Nasopharyngeal Respiratory Panel (PCR) - Final 04/07/24 17:26 Mucosa - Nose SARS-CoV-2, Influenza & RSV (PCR) - Final Radiography Diagnostic Testing: Radiology Impression Chest CTA 04/11/24 15:17 IMPRESSION: No evidence of pulmonary embolus. There is bibasilar atelectasis. Electronically Signed: Lon Snow MD at 16:26 EST , Physical Exam Const alert, oriented x3, no apparent distress and well nourished Constitutional Narrative: Obese, upper middle-aged, white female, sitting up in bed, appears older than stated age, does not appear toxic HEENT head/scalp atraumatic, moist oral mucous membranes and oropharynx normal HEENT Narrative: No thrush, Mallampati 3 Resp normal respiratory effort, no retractions, no use of accessory muscles and No clear to auscultation bilaterally Resp Narrative: Diffusely diminished with few scattered and expiratory wheezes Auscultation: rales and rhonchi; Negative for wheezes Cardio regular rate, regular rhythm, S1 normal heart sound, S2 normal heart sound, no murmurs, no rub, no gallops and no clicks GI normal to inspection, nondistended, normoactive bowel sounds, soft to palpation and non-tender GI Narrative: Large protuberant abdomen Extremity no clubbing, cyanosis or edema Extremity Narrative: Pedal pulses are 2+, radial pulses are 2+ Neuro oriented x3, moves all extremities and no focal motor deficits Speech: speech normal Psych affect normal Psych Narrative: Very pleasant, interacts appropriately Assessment & Plan Assessment/Plan (1) COPD exacerbation: (2) Hypoxemia: (3) Cough: PLAN: Plan Acute hypoxia secondary to acute exacerbation of COPD -Patient is clinically a bit better but still having hypoxia -I do wonder if she is hypoxic at baseline -Continue IV Solu-Medrol -Continue scheduled and as needed nebulizers -Add incentive spirometry -Add Pep therapy with Acapella -Lasix 40 mg IV push x 1 dose -CTA of the chest was ordered and shows no pulmonary emboli and no significant findings on lung parenchyma -Will repeat home O2 eval tomorrow after diuretics Hyperglycemia -Patient not diagnosed diabetic at baseline -Elevation is likely related to steroids -Check hemoglobin A1c -No sliding scale for now unless blood sugars are consistently above 180 Essential hypertension -Continue home clonidine GERD -Continue home PPI Restless leg syndrome -Continue home ropinirole Psoriasis -No acute issue Obesity -BMI 33.0 -Complicates treatment, prognosis, outcomes next-recommend weight loss -Patient should be tested for obstructive sleep apnea with outpatient polysomnography Depression/anxiety -Continue home duloxetine -Continue as needed hydroxyzine -Continue home mirtazapine Insomnia -Continue home trazodone DVT prophylaxis -Continue enoxaparin 40 subcu daily CODE STATUS -DNR CCA with no intubation Charges/Coding Visit Charges Inpatient E&M: 91568 Subs Hosp L2
[2024-04-11] MEDS: Furosemide 40 MG/4 ML Vial IV (22:01)
[2024-04-12] VITALS (9 sets, daily range): BP systolic 110–148; BP diastolic 59–70; PULSE 56–82; RESP 15–24; TEMP 36.1–37.5; O2SAT 81–95
[2024-04-12] MEDS: 0.9% Saline Lock 10 ML Syringe IV ×4 (05:43→20:32)
[2024-04-12] MEDS: Gabapentin 400 MG Capsule PO ×3 (05:43→20:32)
[2024-04-12] MEDS: Acetaminophen 325 MG Tablet 650 MG PO ×2 (05:43→20:33)
[2024-04-12] MEDS: BENZOCAINE/MENTHOL 1 LOZENGE MUCOUS MEM ×2 (05:43→20:32)
[2024-04-12] MEDS: Enoxaparin 40 MG/0.4 ML Syringe SC (05:44)
[2024-04-12] MEDS: Ipratropium/Albuterol Sulfate 3 ML AMPUL.NEB INHALATION ×3 (06:40→20:02)
[2024-04-12 08:04] LABS: Absolute Lymphocyte Count 2.24 X10^3/uL (0.83-4.51); Absolute Neutrophil Count 8.2 X10^3/uL (2.0-7.7); Basophil# 0.04 X10^3/uL; Basophil% 0.3 % (0-1); Eosinophil# 0.01 X10^3/uL; Eosinophils% 0.1 % (0-5); Hematocrit 41.5 % (37-47); Hemoglobin 13.9 g/dL (12.0-15.0); Lymphocyte # 2.24 X10^3/ul (0.83-4.51); Lymphocyte % 19.2 % (19-41); Mean Corp Hgb Conc 33.5 g/dL (32-36); Mean Corpuscular Hgb 32.3 pg (27.0-32.0); Mean Corpuscular Volume 96.3 fL (81-99); Mean Platelet Vol. 10.3 fl (6.2-12.0); Monocyte# 0.94 X10^3/uL; NRBC Flagged by Analyzer 0 % (0-5); Neutrophil # 8.15 X10^3/uL (2.7-7.7); Neutrophil % 69.7 % (47-70); Platelet Count 160 K/mm3 (150-450); RBC Distribution Width CV 12.3 % (11.6-14.6); Red Blood Count 4.31 M/mm3 (4.2-5.4); White Blood Count 11.7 K/mm3 (4.4-11.0)
[2024-04-12 09:00] LABS: AST(SGOT) 38 U/L (15-37); Alanine Aminotransfer ALT/SGPT 65 U/L (13-56); Albumin, Serum 2.6 g/dL (3.2-5.0); Alkaline Phosphatase 58 U/L (45-117); Anion Gap 6 (5-15); BUN 23 mg/dL (7-18); Bilirubin, Direct 0.09 mg/dL (0.00-0.30); Calcium,Total 9.4 mg/dL (8.5-10.1); Chloride 101 mmol/L (98-107); Creatinine, Serum 0.74 mg/dL (0.55-1.02); EST Glomerular Filtration Rate 83 mL/min (>60); Est Glom Filt Rate - Afr Amer 100 mL/min (>60); Estimated Creatinine Clearance 74.61 ml/min; Glucose 162 mg/dL (74-106); Potassium 4.4 mmol/L (3.5-5.1); Protein, Total 6.6 g/dL (6.4-8.2); Sodium Level 137 mmol/L (136-145); Thyroid Stim Hormone (TSH) 0.235 uIU/mL (0.358-3.740)
[2024-04-12 09:29] LABS: Hemoglobin A1c 6.3 % (3.8-5.6)
[2024-04-12 09:35] LABS: T4 Free Direct 0.77 ng/dL (0.76-1.46)
[2024-04-12] MEDS: DULoxetine Hcl 60 MG Capsule PO (10:16)
[2024-04-12] MEDS: guaiFENesin 1,200 MG Tablet 1200 MG PO ×2 (10:17→20:32)
[2024-04-12] MEDS: Furosemide 40 MG/4 ML Vial IV (12:18)
--- NOTE | 2024-04-12 18:39 | PCM.PN.HOSP ---
Reason for Visit Reason for Visit: Shortness of breath Subjective Subjective Patient states she does feel little bit better. Still complains of significant pharyngitis. Stated she responded fairly well to the Lasix. No significant issues overnight. Still requiring 3 L at at rest and 6 L with ambulation this morning. Will try further diuretics. I do suspect patient will need chronic oxygen at the time of discharge and that she does have fairly significant lung disease. Will need outpatient follow-up with pulmonary medicine for outpatient PFTs and a 6-minute walk test. Objective Data Objective Data Vital Signs: Vital Signs Temp Pulse Resp BP Pulse Ox O2 Del Method O2 Flow Rate 99.5 F H 82 20 H 110/59 L 94 Nasal Cannula 2 04/12/24 14:22 04/12/24 14:22 04/12/24 14:22 04/12/24 14:22 04/12/24 14:22 04/12/24 14:22 04/12/24 14:00 Oxygen Flow Rate (L/min) 2 Oxygen Delivery Method Nasal Cannula Weight: 90.045 kg Body Mass Index (BMI) 33.0 Intake & Output: Intake and Output for Last 24 Hours 04/10/24 04/11/24 04/12/24 23:59 23:59 23:59 Intake Total 650 / 650 Output Total 3750 / 3750 Balance 650 / -1000 -3750 / -3750 Lab / Micro Data 04/12/24 07:10 04/12/24 07:10 Labs: Laboratory Results - last 24 hr 04/12/24 07:10: WBC 11.7 H, RBC 4.31, Hgb 13.9, Hct 41.5, MCV 96.3, MCH 32.3 H, MCHC 33.5, RDW Std Deviation 44.0 H, RDW Coeff of Eulalia 12.3, Plt Count 160, MPV 10.3, Immature Gran % (Auto) 2.700 H, Neut % (Auto) 69.7, Lymph % (Auto) 19.2, [place] % (Auto) 8.0, Eos % (Auto) 0.1, Baso % (Auto) 0.3, Absolute Neuts (auto) 8.2 H, Absolute Lymphs (auto) 2.24, Nucleated RBC % 0, Sodium 137, Potassium 4.4, Chloride 101, Carbon Dioxide 30.0, Anion Gap 6, BUN 23 H, Creatinine 0.74, Estim Creat Clear Calc 74.61, Est GFR (MDRD) Af Amer 100, Est GFR (MDRD) Non-Af 83, BUN/Creatinine Ratio 31.0 H, Glucose 162 H, Hemoglobin A1c 6.3 H, Calcium 9.4, Total Bilirubin 0.50, Direct Bilirubin 0.09, AST 38 H, ALT 65 H, Alkaline Phosphatase 58, Total Protein 6.6, Albumin 2.6 L, Globulin 4.0, TSH 0.235 L, Free T4 0.77 Micro: Microbiology 04/09/24 13:30 Mucosa - Nasopharyngeal Respiratory Panel (PCR) - Final 04/07/24 17:26 Mucosa - Nose SARS-CoV-2, Influenza & RSV (PCR) - Final Physical Exam Const alert, oriented x3, no apparent distress and well nourished; Negative for average body habitus or healthy appearing Constitutional Narrative: Obese, upper middle-aged, white female, lying in bed, appears older than stated age, does not appear toxic General Appearance: cooperative HEENT normocephalic, head/scalp atraumatic and moist oral mucous membranes HEENT Narrative: Mallampati 3, no thrush, edentulous Resp normal respiratory effort, no retractions, no use of accessory muscles and No clear to auscultation bilaterally Resp Narrative: Diffusely diminished Auscultation: Negative for rales, rhonchi or wheezes Cardio regular rate, regular rhythm, S1 normal heart sound, S2 normal heart sound, no murmurs, no rub, no gallops and no clicks GI normal to inspection, nondistended, normoactive bowel sounds, soft to palpation and non-tender GI Narrative: Large protuberant abdomen Extremity no clubbing, cyanosis or edema Extremity Narrative: Pedal pulses are 2+, radial pulses are 2+ Neuro oriented x3, moves all extremities and no focal motor deficits Speech: speech normal Psych affect normal Psych Narrative: Very pleasant, interacts appropriately Appearance: appropriate Assessment & Plan Assessment/Plan (1) COPD exacerbation: (2) Hypoxemia: (3) Cough: PLAN: Plan Acute hypoxia secondary to acute exacerbation of COPD -Patient is clinically a bit better but still having hypoxia -I do wonder if she is hypoxic at baseline -Continue IV Solu-Medrol -Continue scheduled and as needed nebulizers -Continue incentive spirometry -Continue Pep therapy with Acapella -Repeat Lasix 40 mg IV push x 1 dose -CTA of the chest was ordered and shows no pulmonary emboli and no significant findings on lung parenchyma -Recheck home O2 eval tomorrow and if decreased oxygen requirements anticipate discharge home Insulin resistance without diagnosis of diabetes -Patient not diagnosed diabetic at baseline -Elevation is likely related to steroids -Hemoglobin A1c is 6.3 -No sliding scale for now unless blood sugars are consistently above 180 Abnormal TSH -Free T4 is within normal limits -Euthyroid sick syndrome Essential hypertension -Continue home clonidine GERD -Continue home PPI Restless leg syndrome -Continue home ropinirole Psoriasis -No acute issue Obesity -BMI 33.0 -Complicates treatment, prognosis, outcomes next-recommend weight loss -Patient should be tested for obstructive sleep apnea with outpatient polysomnography Depression/anxiety -Continue home duloxetine -Continue as needed hydroxyzine -Continue home mirtazapine Insomnia -Continue home trazodone DVT prophylaxis -Continue enoxaparin 40 subcu daily CODE STATUS -DNR CCA with no intubation Charges/Coding Visit Charges Inpatient E&M: 34368 Subs Hosp L2
[2024-04-12] MEDS: traZODone 100 MG Tablet PO (20:32)
[2024-04-12] MEDS: Pramipexole Di-HCl 0.125 MG Tablet PO (20:32)
[2024-04-12] MEDS: Pantoprazole Sodium 40 MG Tablet PO (20:32)
[2024-04-12] MEDS: Mirtazapine 15 MG Tablet PO (20:32)
[2024-04-13] VITALS (13 sets, daily range): BP systolic 126–148; BP diastolic 53–89; PULSE 65–86; RESP 16–19; TEMP 36.1–37; O2SAT 88–96
[2024-04-13] MEDS: Acetaminophen 325 MG Tablet 650 MG PO (06:46)
[2024-04-13] MEDS: Gabapentin 400 MG Capsule PO ×3 (06:46→21:00)
[2024-04-13] MEDS: 0.9% Saline Lock 10 ML Syringe IV (06:46)
[2024-04-13] MEDS: Enoxaparin 40 MG/0.4 ML Syringe SC (06:48)
[2024-04-13] MEDS: Ipratropium/Albuterol Sulfate 3 ML AMPUL.NEB INHALATION ×3 (07:07→19:28)
[2024-04-13 07:13] LABS: Absolute Lymphocyte Count 2.49 X10^3/uL (0.83-4.51); Basophil# 0.07 X10^3/uL; Basophil% 0.5 % (0-1); Hematocrit 40.4 % (37-47); Hemoglobin 13.4 g/dL (12.0-15.0); Lymphocyte # 2.49 X10^3/ul (0.83-4.51); Lymphocyte % 17.2 % (19-41); Mean Corp Hgb Conc 33.2 g/dL (32-36); Mean Corpuscular Hgb 31.9 pg (27.0-32.0); Mean Corpuscular Volume 96.2 fL (81-99); Monocyte% 8.3 % (0-10); NRBC Flagged by Analyzer 0 % (0-5); Neutrophil # 10.03 X10^3/uL (2.7-7.7); Neutrophil % 69.2 % (47-70); Platelet Count 166 K/mm3 (150-450); RBC Distribution Width CV 12.5 % (11.6-14.6); RBC Distribution Width SD 44.1 fl (35.1-43.9); White Blood Count 14.5 K/mm3 (4.4-11.0)
[2024-04-13 07:38] LABS: Anion Gap 4 (5-15); BUN 33 mg/dL (7-18); BUN/Creat Ratio 42.2 RATIO (10-20); Chloride 100 mmol/L (98-107); Creatinine, Serum 0.78 mg/dL (0.55-1.02); EST Glomerular Filtration Rate 78 mL/min (>60); Est Glom Filt Rate - Afr Amer 94 mL/min (>60); Estimated Creatinine Clearance 74.61 ml/min; Glucose 180 mg/dL (74-106); Potassium 4.7 mmol/L (3.5-5.1); Sodium Level 137 mmol/L (136-145)
[2024-04-13] MEDS: guaiFENesin 1,200 MG Tablet 1200 MG PO ×2 (09:14→21:00)
[2024-04-13] MEDS: DULoxetine Hcl 60 MG Capsule PO (09:14)
--- NOTE | 2024-04-13 09:38 | CASEMGMT ---
Addendum entered by Stefanie Kruse 04/13/24 16:49: TC to Claudia at [facility], she states there was a message sent to the medical necessity review team to see if they can service pt as she did not follow up with physician in the past nor return equipment. They are not sure if they can accept pt for care. Gave Claudia the nurses station phone number for when an answer is given. Updated pt nurse and hospitalist. Pt may not dc until a tank is provided. Pt is aware of this. She does confirm that she doesn't have any portable tanks at home. Addendum entered by Stefanie Kruse 04/13/24 15:14: TC to [facility], spoke with Claudia, made aware of oxygen order and that pt is dc'ing from the hospital today and will need a portable tank delivered to the room. KELLY TOBIAS verified pt address which was incorrect in system, Claudia updated it with [facility]. RN JATINDER changed in system and also resent order with corrected address. Pt is aware she will need to wait to dc until tank delivered. Pt nurse updated as well. Addendum entered by Stefanie Kruse 04/13/24 14:59: Received notification from [employer] that they are not in network with pt insurance. KELLY TOBIAS into pt room, pt states she will go with [facility] as she has had them in the past. She states she has a concentrator at home but does not know who it is through. Referral sent to [facility] at this time via [facility]. Addendum entered by Stefanie Kruse 04/13/24 14:20: KELLY TOBIAS into pt room, pt has oxygen delivered to room but has not had respiratory teaching. Nurse aware once this is completed that pt can dc from CM standpoint. Addendum entered by Stefanie Kruse 04/13/24 13:36: Received tc from hospitalist who asks for respiratory to teach pt to use combivent for homegoing. TC to respiratory, they will come educate pt. Addendum entered by Stefanie Kruse 04/13/24 12:04: [place] [facility] [place] [facility] [place] at this [place]. Original Note: KELLY TOBIAS into pt room, pt states she gets to go home today. Pt aware she will be tested again for oxygen. Reviewed home oxygen instructions with pt. Pt verbalizes understanding. Pt is requesting POC, will place on order. Pt states she is able to obtain a pox. She denies need for any SN or therapy upon homegoing. Pt denies further needs at this time.
--- NOTE | 2024-04-13 12:59 | PCM.DC.SUM ---
Providers Date of Admission: 04/07/24 Date of Discharge: 04/13/24 Primary Care Physician: Out of [facility] Doctor Reason For Visit: COPD EXACERBATION Diagnosis Discharge Diagnosis (1) COPD exacerbation: Status: Chronic Code(s): J44.1 - Chronic obstructive pulmonary disease with (acute) exacerbation (2) Hypoxemia: Status: Acute Code(s): R09.02 - Hypoxemia (3) Cough: Status: Acute Code(s): R05.9 - Cough, unspecified Medications at Discharge Home Medications clonidine HCl 0.2 mg tablet 0.2 mg PO QHS sleep 02/01/24 gabapentin 400 mg capsule 400 mg PO Q8H 02/01/24 hydroxyzine pamoate 50 mg capsule 50 mg PO TID PRN anxiety 02/01/24 mirtazapine 15 mg tablet 15 mg PO QHS 02/01/24 duloxetine 60 mg capsule,delayed release 60 mg PO DAILY 04/07/24 omeprazole 40 mg capsule,delayed release 40 mg PO DAILY PRN heartburn 04/07/24 ropinirole 0.25 mg tablet 0.25 mg PO QHS PRN sleep 04/07/24 trazodone 100 mg tablet 100 mg PO QHS 04/07/24 guaifenesin 1,200 mg tablet, extended release 12 hr (Mucus Relief ER) 1,200 mg PO BID #60 tabs 04/13/24 ipratropium 20 mcg-albuterol 100 mcg/actuation mist for inhalation (Combivent Respimat) 1 puff inhalation Q6H #4 grams 04/13/24 prednisone 10 mg tablet 10 mg PO DAILY #40 tabs 04/13/24 Hospital Course Operations None Summary of Care Provided Minutes Spent on Discharge: 37 Hospital Course: Mrs. Mayberry a 68-year-old female with a history of tobacco abuse who is currently still smoking and presented to the emergency department with acute shortness of breath. She reported 3-day history of progressively worsening shortness of breath at the time of admission and reported that her cough is dry nonproductive and she felt like she was wheezing. Patient does have oxygen at home and is to be wearing it at night but does not typically wear it. She denied any chest pain, fever, or chills. In the emergency department she was found to be hypoxic with ambulation and admission was requested. Vital signs on presentation showed a temperature of 99.1, heart rate 85, respiratory rate was 32 with a repeat at 24, blood pressure was 156/75 and pulse ox was 95% on room air. CBC was unremarkable with no left shift. She has noted to have thrombocytopenia which appears to be chronic. She did have a monocytosis at that time. Chemistry panel showed mild hypokalemia at 3.3 which is since resolved with supplementation. Her glucose was 165. Chest x-ray was unremarkable. Respiratory viral panel and COVID/flu/RSV were negative. She was admitted to the medical surgical floor placed on treatment for acute exacerbation of COPD with aggressive pulmonary toilet utilizing scheduled and as needed nebulizers, IV steroids, and incentive spirometry with Pep therapy. Patient was not able to produce any significant sputum for sputum culture however her symptoms were not consistent with pneumonia. She is still smoking 1 pack of cigarettes daily and does not seem to be very motivated to stop. With the above treatment in addition to as needed diuretics we were able to slowly wean her oxygen from 3 L at rest and 6 L with exertion to 2 L at rest and 3 L with exertion. I am concerned that she possibly has chronic hypoxia and this has been undiagnosed as she does not follow-up with pulmonary medicine or her primary care physician frequently. I have reviewed the oxygen testing, and this patient qualifies for the home equipment and portability. The patient is mobile in the home and the community. At the time of discharge we did place her on a prednisone taper that will be slow and I have encouraged her to continue to use her incentive spirometer and Acapella. We have also recommended that she continue Mucinex 1200 mg p.o. twice daily. We also prescribed Combivent inhaler which she was instructed on use by respiratory therapy prior to discharge. In addition to smoking cessation, I did advise that she follow-up with a supervisor scouring pads. Information was given to the supervisor scouring pads and she was advised to call to make an appointment. She was discharged home in stable condition on 04/13/2024. I have also asked that she follow-up with her primary care physician within the next 1 to 2 weeks. Patient was extensively counseled on not smoking while she is using her oxygen and we did discuss the ramifications of smoking on oxygen. Patient voiced understanding and states she was aware. Discharge diagnoses: Acute hypoxia Acute exacerbation of COPD Insulin resistance without diagnosis of diabetes-hemoglobin A1c is 6.3 Euthyroid sick syndrome Essential hypertension GERD Restless leg syndrome Psoriasis Obesity Depression Anxiety Insomnia Physical Exam Narrative Patient states she is feeling much better. She states her sore throat has resolved and she is breathing much better. She did tell nursing she cannot wait to go home and smoke. Const alert, oriented x3, no apparent distress, no limitations and well nourished; Negative for average body habitus or healthy appearing Constitutional Narrative: Obese, upper middle-aged, white female, lying in bed, appears older than stated age, does not appear toxic General Appearance: cooperative, comfortable, well kempt and well developed Orientation / Consciousness: lethargic Exam Limitations: no limitations Nutritional Appearance: obese HEENT normocephalic, head/scalp atraumatic, moist oral mucous membranes and oropharynx normal HEENT Narrative: Mild hearing loss, Mallampati 3, no thrush Eyes EOMs intact bilaterally and conjunctivae normal Eyes Narrative: No scleral icterus Neck no lymphadenopathy and supple Neck Narrative: Trachea is midline, neck is short and thick Resp normal respiratory effort, no retractions, no use of accessory muscles and No clear to auscultation bilaterally Resp Narrative: Diffusely diminished but clear Auscultation: Negative for rales, rhonchi or wheezes Cardio regular rate, regular rhythm, S1 normal heart sound, S2 normal heart sound, no murmurs, no rub, no gallops and no clicks GI normal to inspection, nondistended, normoactive bowel sounds, soft to palpation and non-tender GI Narrative: Large protuberant abdomen Extremity no clubbing, cyanosis or edema Extremity Narrative: Pedal pulses are 2+, radial pulses are 2+ Skin skin turgor normal and no jaundice Skin Narrative: Scattered tattoos Neuro oriented x3, moves all extremities and no focal motor deficits Speech: speech normal Psych thought process normal and affect normal Psych Narrative: Very pleasant, interacts appropriately Weight / BMI Weight Weight: 90.045 kg Body Mass Index (BMI) 33.0 ABG / Lab / Microbiology Data 04/13/24 06:29 04/13/24 06:29 Laboratory: Laboratory Results - last 24 hr 04/13/24 06:29: WBC 14.5 H, RBC 4.20, Hgb 13.4, Hct 40.4, MCV 96.2, MCH 31.9, MCHC 33.2, RDW Std Deviation 44.1 H, RDW Coeff of Eulalia 12.5, Plt Count 166, MPV 10.0, Immature Gran % (Auto) 4.800 H, Neut % (Auto) 69.2, Lymph % (Auto) 17.2 L, Morris % (Auto) 8.3, Eos % (Auto) 0.0, Baso % (Auto) 0.5, Absolute Neuts (auto) 10.0 H, Absolute Lymphs (auto) 2.49, Nucleated RBC % 0, Sodium 137, Potassium 4.7, Chloride 100, Carbon Dioxide 33.0 H, Anion Gap 4 L, BUN 33 H, Creatinine 0.78, Estim Creat Clear Calc 74.61, Est GFR (MDRD) Af Amer 94, Est GFR (MDRD) Non-Af 78, BUN/Creatinine Ratio 42.2 H, Glucose 180 H, Calcium 9.0 Microbiology: Microbiology 04/09/24 13:30 Mucosa - Nasopharyngeal Respiratory Panel (PCR) - Final 04/07/24 17:26 Mucosa - Nose SARS-CoV-2, Influenza & RSV (PCR) - Final D/C Instructions Discharge Diet: Low fat / Low cholesterol DC O2, CPAP, BIPAP Needs RN Home O2 Qualification: Home O2 Qualification: Is the patient on home oxygen No 04/13/24 11:57 Home O2 Qualification: AT REST 1-Pulse Ox at rest 04/13/24 11:52 1- Oxygen flow rate at rest 2 04/13/24 11:52 2-Pulse Ox at rest 04/12/24 15:52 2- Oxygen flow rate at rest 1 04/12/24 15:52 Home O2 Qualification: WITH AMBULATION 1- Pulse Ox with ambulation 04/13/24 11:52 1- Oxygen Flow Rate with 3 04/13/24 11:52 ambulation 2- Pulse Ox with ambulation 04/12/24 08:22 2- Oxygen Flow Rate with 4 04/12/24 08:22 ambulation 3- Pulse Ox with ambulation 04/12/24 08:22 3- Oxygen Flow Rate with 6 04/12/24 08:22 ambulation Home O2 Qualification: AT REST 1- Pulse Ox at rest 04/13/24 11:57 2- Pulse Ox at rest 04/13/24 11:57 2- Oxygen Flow Rate at rest 2 04/13/24 11:57 Home O2 Qualification: WITH AMBULATION 1- Pulse Ox with ambulation 88 04/13/24 11:57 1- Oxygen Flow Rate with 2 04/13/24 11:57 ambulation 2- Pulse Ox with ambulation 91 04/13/24 11:57 2- Oxygen Flow Rate with 3 04/13/24 11:57 ambulation Home O2 Discharge instructions: Yes Type of respiratory needs?: Oxygen Oxygen frequency: Continuous Continuous oxygen liters per minute: 2 and With Ambulation Oxygen liters per minute during Ambulation: 3 DC home with Oxygen: Yes Home O2 MD Review: I have reviewed the oxygen testing, and the patient qualifies for home oxygen equipment and portability. The patient is mobile in the home and the community. Meaningful Use Info Meaningful Use Meaningful Use Diagnoses (Choose all that apply): None applicable Ischemic Stroke Statin Dosing Therapy Reference: STATIN DOSE THERAPY REFERENCE: * Patients > 75 years receive moderate or high dose statin therapy. * Patients 75 years or YOUNGER should receive HIGH intensity statin dose unless contraindicated. You will be required to document reason for non-treatment if statin daily dose does not meet guidelines. HIGH DOSE STATIN THERAPY DAILY Atorvastatin > than or = to 40 mg Rosuvastatin > than or = to 20 mg Amlodipine + Atorvastatin > than or = to 2.5/40 mg Ezetimibe + Simvastatin 10/80 mg Simvastatin 80mg Discharge Plan Admission Admit Date/Time: 04/07/24 19:00 Primary Reason for Your Visit: Shortness of breath Attending Provider: Tammy Welch Primary Care Provider: [facility] ,Out of Consulting Providers: Lonny Hoover; Aisha Arvizu Instructions Additional Instructions / Restrictions: 1. Please continue to use your incentive spirometer and the Acapella device given to you in the hospital on a regular basis at least 3-4 times daily 2. Please call the pulmonary medicine doctor below and schedule follow-up 3. You do need oxygen at 2 L while you are resting and increase to 3 L when you move around. Remember do not smoke on oxygen Discharge Orders/Prescriptions Prescriptions: New guaifenesin [Mucus Relief ER] 1,200 mg Tablet Extended Release 12hr 1,200 mg PO BID Qty: 60 0RF Combivent Respimat 20-100 mcg/actuation mist 1 puff inhalation Q6H Qty: 4 0RF prednisone 10 mg tablet 10 mg PO DAILY Qty: 40 0RF Rx Instructions: 4 tablets x 4 days, 3 tablets x 4 days, 2 tablets x 4 days, 1 tablet x 4 days and stop Continued gabapentin 400 mg capsule 400 mg PO Q8H hydroxyzine pamoate 50 mg capsule 50 mg PO TID PRN (Reason: anxiety) mirtazapine 15 mg tablet 15 mg PO QHS clonidine HCl 0.2 mg tablet 0.2 mg PO QHS trazodone 100 mg tablet 100 mg PO QHS ropinirole 0.25 mg tablet 0.25 mg PO QHS PRN (Reason: sleep) omeprazole 40 mg capsule,delayed release(DR/EC) 40 mg PO DAILY PRN (Reason: heartburn) duloxetine 60 mg capsule,delayed release(DR/EC) 60 mg PO DAILY Referrals / Follow Up: Prudence Alas MD [Non-Staff] - Within 3 Months (Call for appt) [facility] Doctor,Out of [Primary Care Provider] - Within 1 Week Disposition Disposition (needs filled in before D/C Order can be placed): Home, Self Care Charges/Coding Visit Charges Inpatient E&M: 29586 Disch Hosp >30min
--- NOTE | 2024-04-13 16:37 | NURSING ---
All documentation by director of emergency nursing Becky Larios reviewed by geriatric nursing assistant Margaux ESCOBARN, RN.
[2024-04-13] MEDS: BENZOCAINE/MENTHOL 1 LOZENGE MUCOUS MEM (18:34)
[2024-04-13] MEDS: Mirtazapine 15 MG Tablet PO (21:00)
[2024-04-13] MEDS: traZODone 100 MG Tablet PO (21:00)
[2024-04-13] MEDS: Pramipexole Di-HCl 0.125 MG Tablet PO (21:04)
--- NOTE | 2024-04-13 21:30 | PN.HOSP_ITS ---
Hospitalist Note Patient was medically ready for discharge however the [employer] company could not supply oxygen so her discharge was held and hopefully will proceed tomorrow 04/14/2024.
--- NOTE | 2024-04-13 21:30 | PCM.HOSP.N ---
Hospitalist Note Patient was medically ready for discharge however the [employer] company could not supply oxygen so her discharge was held and hopefully will proceed tomorrow 04/14/2024.
[2024-04-14 02:42] VITALS: BP 132/65; PULSE 65; RESP 18; TEMP 36.6; O2SAT 95
[2024-04-14] MEDS: Enoxaparin 40 MG/0.4 ML Syringe SC (05:22)
[2024-04-14] MEDS: Gabapentin 400 MG Capsule PO (05:22)
[2024-04-14 07:30] LABS: Hematocrit 38.4 % (37-47); Hemoglobin 13.1 g/dL (12.0-15.0); Mean Corp Hgb Conc 34.1 g/dL (32-36); Mean Corpuscular Hgb 33.2 pg (27.0-32.0); Mean Corpuscular Volume 97.2 fL (81-99); Mean Platelet Vol. 10.1 fl (6.2-12.0); POSITIVE COUNT YES; POSITIVE MORPHOLOGY YES; Platelet Count 163 K/mm3 (150-450); RBC Distribution Width CV 12.6 % (11.6-14.6); RBC Distribution Width SD 45.1 fl (35.1-43.9); Red Blood Count 3.95 M/mm3 (4.2-5.4); White Blood Count 16.2 K/mm3 (4.4-11.0)
[2024-04-14 07:44] LABS: Anion Gap 3 (5-15); BUN 39 mg/dL (7-18); BUN/Creat Ratio 44.3 RATIO (10-20); Calcium,Total 8.7 mg/dL (8.5-10.1); Chloride 102 mmol/L (98-107); Creatinine, Serum 0.88 mg/dL (0.55-1.02); EST Glomerular Filtration Rate 68 mL/min (>60); Est Glom Filt Rate - Afr Amer 82 mL/min (>60); Estimated Creatinine Clearance 67.82 ml/min; Glucose 134 mg/dL (74-106); Potassium 4.8 mmol/L (3.5-5.1); Sodium Level 138 mmol/L (136-145)
[2024-04-14] MEDS: predniSONE 20 MG Tablet 40 MG PO (08:49)
[2024-04-14] MEDS: DULoxetine Hcl 60 MG Capsule PO (08:49)
[2024-04-14] MEDS: guaiFENesin 1,200 MG Tablet 1200 MG PO (08:50)
[2024-04-14 09:00] VITALS: BP 143/70; PULSE 77; RESP 18; TEMP 36.8; O2SAT 95
--- NOTE | 2024-04-14 09:28 | CASEMGMT ---
Addendum entered by Stefanie Kruse 04/14/24 10:23: Received confirmation from [facility] that they will service pt and they will bring pt a portable tank to tx home with. Pt updated as well as hospitalist. Original Note: Message sent to [facility] to check if they will be accepting patient for services via [facility].
[2024-04-14 09:46] VITALS: RESP 18
[2024-04-14 10:08] LABS: Lymphocyte 32 % (19-41); Monocyte 3 % (0-10); Neutrophil-Segmented 65 % (47-70); Total Cells Counted 100 (MANUAL DIFF)
[2024-04-14 10:13] LABS: Platelet Estimate ADEQUATE (ADEQ); Reactive Lymphocyte 1+; Red Cell Morphology NORM C+C NORMAL (NORM C&C)
[2024-04-14 10:14] LABS: Differential Indicated MANUAL DIFF
[2024-04-14 10:16] LABS: Absolute Neutrophil Count 10.5 X10^3/uL (2.0-7.7)
[2024-04-14 10:17] LABS: Absolute Lymphocyte Count 5.19 X10^3/uL (0.83-4.51)
[2024-04-14 11:09] VITALS: PULSE 75; RESP 18
[2024-04-14] MEDS: Ipratropium/Albuterol Sulfate 3 ML AMPUL.NEB INHALATION (11:09)
--- NOTE | 2024-04-14 11:37 | DS.PCM_ITS ---
Providers Date of Admission: 04/07/24 Date of Discharge: 04/14/24 Primary Care Physician: Out of [facility] Doctor Reason For Visit: COPD EXACERBATION Diagnosis Discharge Diagnosis (1) COPD exacerbation: Status: Chronic Code(s): J44.1 - Chronic obstructive pulmonary disease with (acute) exacerbation (2) Hypoxemia: Status: Acute Code(s): R09.02 - Hypoxemia (3) Cough: Status: Acute Code(s): R05.9 - Cough, unspecified Medications at Discharge Home Medications clonidine HCl 0.2 mg tablet 0.2 mg PO QHS sleep 02/01/24 gabapentin 400 mg capsule 400 mg PO Q8H 02/01/24 hydroxyzine pamoate 50 mg capsule 50 mg PO TID PRN anxiety 02/01/24 mirtazapine 15 mg tablet 15 mg PO QHS 02/01/24 duloxetine 60 mg capsule,delayed release 60 mg PO DAILY 04/07/24 omeprazole 40 mg capsule,delayed release 40 mg PO DAILY PRN heartburn 04/07/24 ropinirole 0.25 mg tablet 0.25 mg PO QHS PRN sleep 04/07/24 trazodone 100 mg tablet 100 mg PO QHS 04/07/24 guaifenesin 1,200 mg tablet, extended release 12 hr (Mucus Relief ER) 1,200 mg PO BID #60 tabs 04/13/24 ipratropium 20 mcg-albuterol 100 mcg/actuation mist for inhalation (Combivent Respimat) 1 puff inhalation Q6H #4 grams 04/13/24 prednisone 10 mg tablet 10 mg PO DAILY #40 tabs 04/13/24 Hospital Course Procedures - (Chest x-ray/CTA chest) Summary of Care Provided Minutes Spent on Discharge: 37 Hospital Course: Mrs. Mayberry a 68-year-old female with a history of tobacco abuse who is currently still smoking and presented to the emergency department with acute shortness of breath. She reported 3-day history of progressively worsening shortness of breath at the time of admission and reported that her cough is dry nonproductive and she felt like she was wheezing. Patient does have oxygen at home and is to be wearing it at night but does not typically wear it. She denied any chest pain, fever, or chills. In the emergency department she was found to be hypoxic with ambulation and admission was requested. Vital signs on presentation showed a temperature of 99.1, heart rate 85, respiratory rate was 32 with a repeat at 24, blood pressure was 156/75 and pulse ox was 95% on room air. CBC was unremarkable with no left shift. She has noted to have thrombocytopenia which appears to be chronic. She did have a monocytosis at that time. Chemistry panel showed mild hypokalemia at 3.3 which is since resolved with supplementation. Her glucose was 165. Chest x-ray was unremarkable. Respiratory viral panel and COVID/flu/RSV were negative. She was admitted to the medical surgical floor placed on treatment for acute exacerbation of COPD with aggressive pulmonary toilet utilizing scheduled and as needed nebulizers, IV steroids, and incentive spirometry with Pep therapy. Patient was not able to produce any significant sputum for sputum culture however her symptoms were not consistent with pneumonia. She is still smoking 1 pack of cigarettes daily and does not seem to be very motivated to stop. With the above treatment in addition to as needed diuretics we were able to slowly wean her oxygen from 3 L at rest and 6 L with exertion to 2 L at rest and 3 L with exertion. I am concerned that she possibly has chronic hypoxia and this has been undiagnosed as she does not follow-up with pulmonary medicine or her primary care physician frequently. I have reviewed the oxygen testing, and this patient qualifies for the home equipment and portability. The patient is mobile in the home and the community. At the time of discharge we did place her on a prednisone taper that will be slow and I have encouraged her to continue to use her incentive spirometer and Acapella. We have also recommended that she continue Mucinex 1200 mg p.o. twice daily. We also prescribed Combivent inhaler which she was instructed on use by respiratory therapy prior to discharge. In addition to smoking cessation, I did advise that she follow-up with a boiler shop supervisor. Information was given to the boiler shop supervisor and she was advised to call to make an appointment. She was discharged home in stable condition on 04/13/2024. I have also asked that she follow-up with her primary care physician within the next 1 to 2 weeks. Patient was extensively counseled on not smoking while she is using her oxygen and we did discuss the ramifications of smoking on oxygen. Patient voiced understanding and states she was aware. Discharge diagnoses: Acute hypoxia Acute exacerbation of COPD Insulin resistance without diagnosis of diabetes-hemoglobin A1c is 6.3 Euthyroid sick syndrome Essential hypertension GERD Restless leg syndrome Psoriasis Obesity Depression Anxiety Insomnia Physical Exam Narrative No issues overnight. Patient was frustrated she gets to go home. She states to nursing she wants to go home and smoke. Const alert, oriented x3, no apparent distress, no limitations and well nourished; Negative for average body habitus or healthy appearing Constitutional Narrative: Obese, upper middle-aged, white female, lying in bed, appears older than stated age, does not appear toxic General Appearance: cooperative, comfortable, well kempt and well developed Orientation / Consciousness: lethargic Exam Limitations: no limitations Nutritional Appearance: obese HEENT normocephalic, head/scalp atraumatic, hearing grossly normal bilaterally and moist oral mucous membranes HEENT Narrative: Mallampati 3, no thrush Eyes EOMs intact bilaterally and conjunctivae normal Eyes Narrative: No scleral icterus Neck supple Neck Narrative: Trachea is midline, neck is short and thick Resp normal respiratory effort, no retractions, no use of accessory muscles and No clear to auscultation bilaterally Resp Narrative: Scattered inspiratory and expiratory wheezes Auscultation: wheezes; Negative for rales or rhonchi Cardio regular rate, regular rhythm, S1 normal heart sound, S2 normal heart sound, no murmurs, no rub, no gallops and no clicks GI normal to inspection, nondistended, normoactive bowel sounds, soft to palpation, non-tender and non-distended GI Narrative: Large protuberant abdomen Extremity normal capillary refill, no clubbing, cyanosis or edema and no calf tenderness Extremity Narrative: Pedal pulses are 2+, radial pulses are 2+ General Extremity: no tenderness to palpation of joints or extremities Skin skin turgor normal, no jaundice, no petechiae and no mottling Skin Narrative: Scattered tattoos Neuro oriented x3, moves all extremities and no focal motor deficits Speech: speech normal Psych thought process normal Psych Narrative: Very pleasant, interacts appropriately Appearance: appropriate Mood & Affect: flat affect Weight / BMI Weight Weight: 90.045 kg Body Mass Index (BMI) 33.0 ABG / Lab / Microbiology Data 04/14/24 05:18 04/14/24 05:18 Laboratory: Laboratory Results - last 24 hr 04/14/24 05:18: WBC 16.2 H, RBC 3.95 L, Hgb 13.1, Hct 38.4, MCV 97.2, MCH 33.2 H , MCHC 34.1, RDW Std Deviation 45.1 H, RDW Coeff of Eulalia 12.6, Plt Count 163, MPV 10.1, Immature Gran % (Auto) [employer] COUNSELOR, Neut % (Auto) [employer] COUNSELOR, Lymph % (Auto) [employer]ORD[employer] COUNSELOR, [place] % (Auto) [employer]ORD[employer] COUNSELOR, Eos % (Auto) [employer]ORD[employer] COUNSELOR, Baso % (Auto) [employer] COUNSELOR, Absolute Neuts (auto) 10.5 H, A bsolute Lymphs (auto) 5.19 H, Total Counted 100, Neutrophils % (Manual) 65, Lymphocytes % (Manual) 32, Monocytes % (Manual) 3, Nucleated RBC % [employer]ORD[employer] COUNSELOR, Reactive Lymphocytes 1+, Platelet Estimate ADEQUATE, RBC Morphology NORM C+C, Sodium 138, Potassium 4.8, Chloride 102, Carbon Dioxide 32.0, Anion Gap 3 L, BUN 39 H, Creatinine 0.88, Estim Creat Clear Calc 67.82, Est GFR (MDRD) Af Amer 82, Est GFR (MDRD) Non-Af 68, BUN/Creatinine Ratio 44.3 H, Glucose 134 H, Calcium 8.7 Microbiology: Microbiology 04/09/24 13:30 Mucosa - Nasopharyngeal Respiratory Panel (PCR) - Final 04/07/24 17:26 Mucosa - Nose SARS-CoV-2, Influenza & RSV (PCR) - Final D/C Instructions Discharge Diet: Low fat / Low cholesterol Discharge Activity: Return to Normal Activity DC O2, CPAP, BIPAP Needs RN Home O2 Qualification: Home O2 Qualification: Is the patient on home oxygen No 04/13/24 11:57 Home O2 Qualification: AT REST 1-Pulse Ox at rest 04/13/24 11:52 1- Oxygen flow rate at rest 2 04/13/24 11:52 2-Pulse Ox at rest 04/12/24 15:52 2- Oxygen flow rate at rest 1 04/12/24 15:52 Home O2 Qualification: WITH AMBULATION 1- Pulse Ox with ambulation 04/13/24 11:52 1- Oxygen Flow Rate with 3 04/13/24 11:52 ambulation 2- Pulse Ox with ambulation 88 04/12/24 08:22 2- Oxygen Flow Rate with 4 04/12/24 08:22 ambulation 3- Pulse Ox with ambulation 04/12/24 08:22 3- Oxygen Flow Rate with 6 04/12/24 08:22 ambulation Home O2 Qualification: AT REST 1- Pulse Ox at rest 04/13/24 11:57 2- Pulse Ox at rest 90 04/13/24 11:57 2- Oxygen Flow Rate at rest 2 04/13/24 11:57 Home O2 Qualification: WITH AMBULATION 1- Pulse Ox with ambulation 88 04/13/24 11:57 1- Oxygen Flow Rate with 2 04/13/24 11:57 ambulation 2- Pulse Ox with ambulation 91 04/13/24 11:57 2- Oxygen Flow Rate with 3 04/13/24 11:57 ambulation Home O2 Discharge instructions: Yes Type of respiratory needs?: Oxygen Oxygen frequency: Continuous Continuous oxygen liters per minute: 2 and With Ambulation Oxygen liters per minute during Ambulation: 3 DC home with Oxygen: Yes Home O2 MD Review: I have reviewed the oxygen testing, and the patient qualifies for home oxygen equipment and portability. The patient is mobile in the home and the community. Meaningful Use Info Meaningful Use Meaningful Use Diagnoses (Choose all that apply): None applicable Ischemic Stroke Statin Dosing Therapy Reference: STATIN DOSE THERAPY REFERENCE: * Patients > 75 years receive moderate or high dose statin therapy. * Patients 75 years or YOUNGER should receive HIGH intensity statin dose unless contraindicated. You will be required to document reason for non-treatment if statin daily dose does not meet guidelines. HIGH DOSE STATIN THERAPY DAILY Atorvastatin > than or = to 40 mg Rosuvastatin > than or = to 20 mg Amlodipine + Atorvastatin > than or = to 2.5/40 mg Ezetimibe + Simvastatin 10/80 mg Simvastatin 80mg Discharge Plan Admission Admit Date/Time: 04/07/24 19:00 Primary Reason for Your Visit: Shortness of breath Attending Provider: Tammy Welch Primary Care Provider: [facility] ,Out of Consulting Providers: Lonny Hoover; Aisha Arvizu Instructions Additional Instructions / Restrictions: 1. Please continue to use your incentive spirometer and the Acapella device given to you in the hospital on a regular basis at least 3-4 times daily 2. Please call the pulmonary medicine doctor below and schedule follow-up 3. You do need oxygen at 2 L while you are resting and increase to 3 L when you move around. Remember do not smoke on oxygen Discharge Orders/Prescriptions Prescriptions: New guaifenesin [Mucus Relief ER] 1,200 mg Tablet Extended Release 12hr 1,200 mg PO BID Qty: 60 0RF Combivent Respimat 20-100 mcg/actuation mist 1 puff inhalation Q6H Qty: 4 0RF prednisone 10 mg tablet 10 mg PO DAILY Qty: 40 0RF Rx Instructions: 4 tablets x 4 days, 3 tablets x 4 days, 2 tablets x 4 days, 1 tablet x 4 days and stop Continued gabapentin 400 mg capsule 400 mg PO Q8H hydroxyzine pamoate 50 mg capsule 50 mg PO TID PRN (Reason: anxiety) mirtazapine 15 mg tablet 15 mg PO QHS clonidine HCl 0.2 mg tablet 0.2 mg PO QHS trazodone 100 mg tablet 100 mg PO QHS ropinirole 0.25 mg tablet 0.25 mg PO QHS PRN (Reason: sleep) omeprazole 40 mg capsule,delayed release(DR/EC) 40 mg PO DAILY PRN (Reason: heartburn) duloxetine 60 mg capsule,delayed release(DR/EC) 60 mg PO DAILY Referrals / Follow Up: Prudence Alas MD [Non-Staff] - 04/26/24 8:00 am (Call for appt) [facility] Doctor,Out of [Primary Care Provider] - Within 1 Week Disposition Disposition (needs filled in before D/C Order can be placed): Home, Self Care Charges/Coding Visit Charges Inpatient E&M: 89176 Disch Hosp >30min
--- NOTE | 2024-04-15 15:58 | CASEMGMT ---
On O2 order, wrote error and initials on pt name and address that had been corrected. Sent updated rx to [facility] via [employer] at this time.
== END 2024-04-14 13:21 | disposition home or self-care (01) | DRG 140 ==
LOC: ED 18:48 → MS3 19:17
PROVIDERS: Student in an Organized Health Care Education/Training Program; Admitting Provider Hospitalist; Emergency Provider Emergency Medicine; PCP Nurse Practitioner; Visit Provider Internal Medicine
DX: J44.1 Chronic obstructive pulmonary disease with (acute) exacerbation (principal); D69.6 Thrombocytopenia, unspecified; Z66 Do not resuscitate; E88.819 Insulin resistance, unspecified; F32.A Depression, unspecified; I10 Essential (primary) hypertension; G25.81 Restless legs syndrome; Z68.33 Body mass index [BMI] 33.0-33.9, adult; E87.6 Hypokalemia; F17.210 Nicotine dependence, cigarettes, uncomplicated; K21.9 Gastro-esophageal reflux disease without esophagitis; L40.9 Psoriasis, unspecified; F41.9 Anxiety disorder, unspecified; Z11.52 Encounter for screening for COVID-19; E66.9 Obesity, unspecified; R73.9 Hyperglycemia, unspecified; Z79.01 Long term (current) use of anticoagulants; E07.81 Sick-euthyroid syndrome; G47.00 Insomnia, unspecified
CPT/HCPCS: 36415; 71046; 71275; 80048; 80076; 83036; 84439; 84443; 85025; 87631; 87633; 93005; 94640; 94664; 94668; 99285; Q9967; A4216; J1940

== ENCOUNTER 2024-07-25 17:34 | Emergency (ER) | payer MEDICAID, SELFPAY ==
[2024-07-25] VITALS (7 sets, daily range): BP systolic 117–137; BP diastolic 51–80; PULSE 60–82; RESP 16–25; TEMP 36.7–37; O2SAT 92–99; BMI 33.2
--- NOTE | 2024-07-25 17:53 | EDS_ITS ---
HPI History of Present Illness Chief Complaint: General Illness [facility] Medical History (Updated 07/25/24 @ 21:[address] Titi Andrews, DO) Tobacco dependence Cellulitis of auricle of right ear Psoriasis Tobacco use Obesity HTN (hypertension) Anxiety and depression Cleft palate Home Medications ?Medication ?Instructions ?Recorded ?Last Taken ?Type clonidine HCl 0.2 mg tablet 0.2 mg PO QHS sleep Unknown History gabapentin 400 mg capsule 400 mg PO Q8H 02/01/2404/07 History hydroxyzine pamoate 50 mg capsule 50 mg PO TID PRN anx iety 02/01/24 Unknown History mirtazapine 15 mg tablet 15 mg PO QHS 02/01/24 History duloxetine 60 mg capsule,delayed 60 mg PO DAILY 04/07/24 History release omeprazole 40 mg capsule,delayed 40 mg PO DAILY PRN he artburn 04/07/24 Unknown History release ropinirole 0.25 mg tablet 0.25 mg PO QHS PRN sleep Unknown History trazodone 100 mg tablet 100 mg PO QHS 04/07/2404/06 History guaifenesin 1,200 mg tablet, 1,200 mg PO BID #60 tabs 04/13/24 Unknown Rx extended release 12 hr (Mucus Relief ER) ipratropium 20 mcg-albuterol 100 1 puff inhalation Q6H #4 grams 04/13/24 Unknown Rx mcg/actuation mist for inhalation (Combivent Respimat) prednisone 10 mg tablet 10 mg PO DAILY #40 tabs 03/17 12/08 Unknown Rx azithromycin 500 mg tablet 500 mg PO DAILY 5 days #5 t abs 07/25/24 Unknown Rx prednisone 50 mg tablet 50 mg PO DAILY #5 tabs 07/25 Unknown Rx Allergy/AdvReac Type Severity Reaction Status Date / Time NSAIDS (Non-Steroidal Allergy Unknown PT UNSURE Verified 07/25/24 18:04 Anti-Inflamma OF REACTION aspirin AdvReac Mild Abd Verified 07/25/24 18:04 cramps/diarrhea Family History (Updated 04/07/24 @ 19:[address] Lonny Hoover MD) Other Heart disease Surgical History History of ankle surgery Status post left foot surgery H/O hysterectomy with oophorectomy H/O wrist surgery Social History household members: none Smoking Status: Current every day smoker tobacco type: cigarettes substance use type: does not use EXAM Physical Exam Const Vital Signs: 07/25/24 18:02 07/25/24 18:03 07/25/24 18:04 Temperature 98.1 F Temperature Source Oral Pulse Rate 65 62 Respiratory Rate 22 H 22 H Respiratory Pattern Blood Pressure 118/80 118/80 Blood Pressure Mean 92 92 Pulse Ox 99 99 Oxygen Delivery Method Room Air Room Air Room Air 07/25/24 18:05 07/25/24 18:09 07/25/24 19:09 Temperature 98.6 F Temperature Source Oral Pulse Rate 60 75 Respiratory Rate 16 25 H Respiratory Pattern Normal Blood Pressure 117/51 L Blood Pressure Mean 73 Pulse Ox 92 Oxygen Delivery Method Room Air 07/25/24 20:00 07/25/24 21:00 Temperature 98.3 F 98.3 F Temperature Source Oral Oral Pulse Rate 82 82 Respiratory Rate 23 H 23 H Respiratory Pattern Blood Pressure 137/76 H 135/71 H Blood Pressure Mean 96 92 Pulse Ox 93 92 Oxygen Delivery Method Room Air Room Air MDM MDM MDM Narrative Medical decision making narrative: HISTORY OF PRESENT ILLNESS: Chief complaint: Shortness of breath 68-year-old female history of COPD, hypertension, psoriasis, obesity, presents with not feeling well. Notes 1 day of shortness of breath cough and chills is worse than baseline. Notes she is possibly on 2 to 3 L of oxygen at home however she only uses at night. Denies chest pain. Denies palpitations. Denies any leg swelling. Denies vomiting or diarrhea. Denies sick contacts. The patient denies recent surgery in the last 4 weeks or immobilization in the last 3 days, denies previous diagnosis of DVT or PE, hemoptysis, unilateral leg swelling or malignancy with treatment the last 6 months or palliative. No estrogen use noted. REVIEW OF SYSTEMS: Pertinent positives: Shortness of breath, cough and chills Pertinent negatives: Chest pain PHYSICAL EXAM: Nursing triage notes reviewed, Vital signs reviewed Constitutional: please see mdm HENT: MMM Eyes: Pupils equal round and reactive to light, Extraocular muscles intact Neck: No stridor, no JVD, full neck ROM Lungs: Very slight conversational dyspnea, prolonged expiratory phase, bilateral wheezing, coarse breath sounds, no obvious rales or focal consolidation auscultated Heart: Regular rate and rhythm, No murmurs, No rubs and No gallops, 2+ distal pulses (radial, femoral, posterior tibial) in all extremities Abdomen: Soft, there is no tenderness, rigidity, rebound or guarding, no obvious peritoneal signs, no palpable pulsatile abdominal masses, no auscultated abdominal bruit : No CVAT Extremities: No edema Neuro: No new focal neurological deficits, cranial nerves II through XII intact, 5/5 strength in all present extremities. Intact sensation to light touch in all present extremities, 2+ reflexes bilateral patella tendons. Skin: No rash or lesions noted MEDICAL DECISION MAKING: Chief Complaint: please see [facility] External records reviewed: Reviewed prior inpatient records: Patient was admitted in March 2024 for COPD exacerbation Factors affecting care:As per [facility] Social determinants of health: history of tobacco dependence History obtained from others: none Consults: none [facility] Narrative: The patient was initially hemodynamically stable, afebrile and nontoxic- appearing. Initial exam with bilateral wheezing, prolonged expiratory phase consistent with COPD exacerbation I considered the following differential diagnosis: COPD exacerbation, viral illness, pneumonia, ACS, arrhythmia, anemia I obtained a broad lab and imaging workup to further elucidate etiology of the patient's complaints I considered pulmonary embolism as potential etiology given complaint of shortness of breath however the patient's lung exam is most consistent with a COPD exacerbation. Addition to this her Wells score was 0. Given low risk Wells score and clinical exam more consistent with COPD I did not pursue D-dimer or CT at this time. ALL IMAGES (IF OBTAINED) HAVE BEEN PERSONALLY REVIEWED AND INTERPRETED BY MYSELF. EKG with normal sinus rhythm rate of 62, normal axis, normal intervals, no STEMI CBC without leukocytosis, severe anemia, no thrombocytopenia. High-sensitivity troponin is negative, no evidence of myocardial ischemia I have personally reviewed the patient's chest x-ray. Chest x-ray is unrema rkable for pulmonary edema, pneumothorax, pneumonia or focal cardiopulmonary abnormality. BMP without evidence of significant electrolyte abnormalities, no anion gap, no acute kidney injury. On re-evaluation patient's vitals remained stable. She is breathing more comfortably. Less wheezing. I suspect she is suffering from a COPD exacerbation we will give him a short course steroids, short course of azithromycin and discharge patient. He has home oxygen set for safe in doing this. The patient and/or family, caregivers express understanding. The patient and/or family, caregivers agrees with the plan. Shared decision making: I will have a discussion with the patient and or visitors regarding risk/benefits of further testing or admission. They will be made aware of of the risk/benefits inherent in this decision they will be given the opportunity to voice understanding. Total critical care time today provided was at least 0 minutes. This excludes separately billable procedures. Critical care time (if documented) is secondary to the patient having high probability of clinically significant/life threatening deterioration in the patient's condition which required my urgent in tervention. Impression: 1. COPD exacerbation 2. History of tobacco use Dispo: Discharge home This note was generated with [employer] dictation software. It may contain incorrect words, spelling, and punctuation that were not noted in review of the chart prior to signing. Lab Data Labs: Laboratory Results - last 24 hr 07/25/24 17:50 WBC 7.8 RBC 4.40 Hgb 14.9 Hct 42.4 MCV 96.4 MCH 33.9 H MCHC 35.1 RDW Std Deviation 42.7 RDW Coeff of Eulalia 12.0 Plt Count 177 MPV 9.9 Immature Gran % (Auto) 0.400 Neut % (Auto) 50.8 Lymph % (Auto) 33.2 [place] % (Auto) 10.7 H Eos % (Auto) 4.1 Baso % (Auto) 0.8 Absolute Neuts (auto) 4.0 Absolute Lymphs (auto) 2.58 Nucleated RBC % 0 Sodium 140 Potassium 3.9 Chloride 105 Carbon Dioxide 23.0 Anion Gap 12 BUN 9 Creatinine 0.71 Estim Creat Clear Calc 74.80 Est GFR (MDRD) Non-Af 93 BUN/Creatinine Ratio 12.5 Glucose 113 H Calcium 9.3 Troponin T High Sens 8 Radiography Diagnostic Testing: Clinical Impression(s) from Imaging Studies Chest X-Ray 07/25/24 18:45 IMPRESSION: No acute cardiopulmonary process. Reading Location: [facility] Discharge Plan Triage Chief Complaint: General Illness ED Provider: Titi Andrews Dx/Rx/DC Orders Clinical Impression: COPD exacerbation Instructions: ED COPD Flare Prescriptions: New prednisone 50 mg tablet 50 mg PO DAILY Qty: 5 0RF azithromycin 500 mg tablet 500 mg PO DAILY 5 Days Qty: 5 0RF No Action gabapentin 400 mg capsule 400 mg PO Q8H hydroxyzine pamoate 50 mg capsule 50 mg PO TID PRN (Reason: anxiety) mirtazapine 15 mg tablet 15 mg PO QHS clonidine HCl 0.2 mg tablet 0.2 mg PO QHS trazodone 100 mg tablet 100 mg PO QHS ropinirole 0.25 mg tablet 0.25 mg PO QHS PRN (Reason: sleep) omeprazole 40 mg capsule,delayed release(DR/EC) 40 mg PO DAILY PRN (Reason: heartburn) duloxetine 60 mg capsule,delayed release(DR/EC) 60 mg PO DAILY guaifenesin [Mucus Relief ER] 1,200 mg Tablet Extended Release 12hr 1,200 mg PO BID Qty: 60 0RF Combivent Respimat 20-100 mcg/actuation mist 1 puff inhalation Q6H Qty: 4 0RF prednisone 10 mg tablet 10 mg PO DAILY Qty: 40 0RF Rx Instructions: 4 tablets x 4 days, 3 tablets x 4 days, 2 tablets x 4 days, 1 tablet x 4 days and stop Primary Care Provider: Trev Conway Referrals: Trev Conway, [employer] [Primary Care Provider] - Activity Restrictions/Additional Instructions: Thank you for trusting us with your care today! Your labs and images are reassuring. Suspect concern from a COPD exacerbation. This is treated with oral steroids, oral antibiotics and nebulized breathing treatments. Please wear your oxygen as Directed by your physician. Please take Tylenol (2 pills, 650 mg), ibuprofen (2 pills, 400 mg) every 6 hours as needed for pain and fever control. Please return to the emergency department if your symptoms change or worsen. Please follow with your primary care physician for further outpatient evaluation and management. Print Language: Trinidadian Disposition Disposition: Home, Self Care
--- NOTE | 2024-07-25 18:00 | EKG12_ITS ---
Test Reason : GENERAL Blood Pressure : */* mmHG Vent. Rate : 62 BPM Atrial Rate : 62 BPM P-R Int : 154 ms QRS Dur : 70 ms QT Int : 422 ms P-R-T Axes : 57 -5 25 degrees QTcB Int : 428 ms Normal sinus rhythm Normal ECG Confirmed by Mat Donahue ([id number]), digital editor EDILBERTO GILL ([id number]) on 07/26/2024 9:18:23 AM Referred By: Confirmed By: Mat Donahue
[2024-07-25] MEDS: Ipratropium/Albuterol Sulfate 3 ML AMPUL.NEB INHALATION ×2 (18:09→18:10)
[2024-07-25] MEDS: MethylPREDNISolone 125 MG/2 ML Vial IV (18:13)
[2024-07-25 18:18] LABS: Absolute Lymphocyte Count 2.58 X10^3/uL (0.83-4.51); Basophil# 0.06 X10^3/uL; Basophil% 0.8 % (0-1); Eosinophil# 0.32 X10^3/uL; Eosinophils% 4.1 % (0-5); Hematocrit 42.4 % (37-47); Hemoglobin 14.9 g/dL (12.0-15.0); Lymphocyte # 2.58 X10^3/ul (0.83-4.51); Lymphocyte % 33.2 % (19-41); Mean Corp Hgb Conc 35.1 g/dL (32-36); Mean Corpuscular Hgb 33.9 pg (27.0-32.0); Mean Corpuscular Volume 96.4 fL (81-99); Mean Platelet Vol. 9.9 fl (6.2-12.0); Monocyte# 0.83 X10^3/uL; Monocyte% 10.7 % (0-10); NRBC Flagged by Analyzer 0 % (0-5); Neutrophil # 3.95 X10^3/uL (2.7-7.7); Neutrophil % 50.8 % (47-70); Platelet Count 177 K/mm3 (150-450); RBC Distribution Width SD 42.7 fl (35.1-43.9); White Blood Count 7.8 K/mm3 (4.4-11.0)
[2024-07-25 18:39] LABS: Anion Gap 12 (5-15); BUN 9 mg/dL (4-19); BUN/Creat Ratio 12.5 RATIO (10-20); Calcium,Total 9.3 mg/dL (7.6-11.0); Chloride 105 mmol/L (98-108); Creatinine, Serum 0.71 mg/dL (0.70-1.20); EST Glomerular Filtration Rate 93 (>60); Glucose 113 mg/dL (70-99); Potassium 3.9 mmol/L (3.3-5.1); Sodium Level 140 mmol/L (133-145); Troponin T High Sensitivity 8 ng/L (<=14)
--- NOTE | 2024-07-25 18:45 | RAD_ITS ---
EXAM: XR Chest, 1 View CLINICAL INDICATION: SHORTNESS OF BREATH, COUGH TECHNIQUE: Frontal view of the chest. COMPARISON: No relevant prior studies available. FINDINGS: LUNGS AND PLEURAL SPACES: Unremarkable. No consolidation. No pneumothorax. HEART: Unremarkable. No cardiomegaly. MEDIASTINUM: Unremarkable. Normal mediastinal contour. BONES/JOINTS: Unremarkable. No acute fracture. RAD/Chest 1 View (Portable) IMPRESSION: No acute cardiopulmonary process. Reading Location: [id number]
== END 2024-07-25 21:56 | disposition home or self-care (01) ==
PROVIDERS: Emergency Provider Emergency Medicine; PCP Nurse Practitioner; Visit Provider Emergency Medicine
DX: J44.1 Chronic obstructive pulmonary disease with (acute) exacerbation (principal); I10 Essential (primary) hypertension; E66.9 Obesity, unspecified; F17.210 Nicotine dependence, cigarettes, uncomplicated
CPT/HCPCS: 71045; 80048; 84484; 85025; 87631; 93005; 94640; 96374; 99285; A4216